=== PATIENT | female | born 1970 | race African-American/Black ===

== ENCOUNTER → 2017-01-12 | Outpatient (CLI) | payer OTHER ==
[~2017-01-12] MED LIST: /AMLO25TA PO; /METH500TA PO; /MOM400 PO; ACET-654 PO; ADV250INH INH; ALBU2TA PO; ALBUTEROL INHL INH; AMLO5TAB2 PO; BUSP5TA PO; CIPR500T89 PO; COZA100T2 PO; FLAG500T PO; FLON0.054; FLUTISP; LOSA100T37 PO; LOSA50TA20 PO; LYRI75CA PO; MICR10CA PO; MIRA255PW PO; NORCOBULK PO; NORT50CA PO; OMEP40CA2 PO; ORPH100T PO; PIRO20CA2 PO; ROBA500T PO; TRAM50TA2 PO; VITA50003 PO; ZYRT10CA PO; [UNRECOGNIZED DRUG - CODE] PO; [UNRECOGNIZED DRUG - OTHER]; buspar PO
[2017-01-12 17:23] LABS: FREE T4 1.01 NG/DL (0.76-1.46)
== END ==
LOC: M LAB 15:21
PROVIDERS: ATTEND Internal Medicine Gastroenterology
DX: R10.84 Generalized abdominal pain (principal)

== ENCOUNTER → 2017-01-12 | Outpatient (CLI) | payer OTHER ==
[2017-01-12 15:50] LABS: BASO % 0.8 % (0.0-1.0); EOS # 0.1 K/mm3 (0.0-0.50); LARGE UNSTAINED CELL # 0.1 K/mm3 (0.0-0.4); LARGE UNSTAINED CELL % 2.1 % (0.0-4.0); LYMPH % 53.7 % (24.0-44.0); MEAN CORPUSCULAR HEMOGLOBIN 26.4 pg (27.0-33.0); MEAN CORPUSCULAR HGB CONC 32.9 g/dl (32.0-36.5); MEAN CORPUSCULAR VOLUME 80.1 fl (80.0-96.0); MONO # 0.2 K/mm3 (0.0-0.8); MONO % 4.9 % (0.0-5.0); NEUTROPHILS # 1.3 K/mm3 (1.8-7.7); NEUTROPHILS % 36.5 % (36.0-66.0); PLATELET COUNT, AUTOMATED 299 k/mm3 (150-450); RED CELL DISTRIBUTION WIDTH 13.7 % (11.5-14.5); WHITE BLOOD COUNT 3.6 K/mm3 (4.0-10.0)
[2017-01-12 17:17] LABS: VITAMIN B12 LEVEL 876 PG/ML (247-911)
[2017-01-12 20:30] LABS: ALBUMIN/GLOBULIN RATIO 1.08 (1.00-1.93); ALKALINE PHOSPHATASE 88 U/L (45-117); ALT/SGPT 17 U/L (12-78); ANION GAP 10 MEQ/L (8-16); AST/SGOT 15 U/L (15-37); BILIRUBIN,TOTAL 0.4 MG/DL (0.2-1.0); BLOOD UREA NITROGEN 13 MG/DL (7-18); CARBON DIOXIDE LEVEL 31 MEQ/L (21-32); CHLORIDE LEVEL 103 MEQ/L (98-107); CREATININE FOR GFR 0.93 MG/DL (0.55-1.02); GLOMERULAR FILTRATION RATE > 60.0 (>58); GLUCOSE, FASTING 77 MG/DL (70-105); POTASSIUM SERUM 3.7 MEQ/L (3.5-5.1); SODIUM LEVEL 144 MEQ/L (136-145); TOTAL PROTEIN 7.7 GM/DL (6.4-8.2)
== END ==
LOC: M LAB 15:17
PROVIDERS: ATTEND Family Medicine Addiction Medicine
DX: D64.89 Other specified anemias (principal)

== ENCOUNTER 2017-02-02 05:59 | Emergency (ER) | payer OTHER ==
[~2017-02-02] VITALS: Ht 170.2 cm; Wt 108.9 kg
[~2017-02-02 05:59] MED LIST changes: +BACL10TA2 PO; +OXYC1TAB23 PO; +SOMA350T PO; +TIZA4CAP3 PO; +[UNRECOGNIZED DRUG - CODE] XX
[2017-02-02] MEDS ORDERED: MORPHINE 4 MG/ML 1ML SYRINGE IV ONE (07:00)
[2017-02-02] MEDS ORDERED: ONDANSETRON 4MG/2ML VIAL (J2405) IV ONE (07:00)
[2017-02-02 07:52] LABS: MEAN CORPUSCULAR HEMOGLOBIN 26.3 pg (27.0-33.0); MEAN CORPUSCULAR VOLUME 79.6 fl (80.0-96.0); RED CELL DISTRIBUTION WIDTH 13.6 % (11.5-14.5); WHITE BLOOD COUNT 3.5 K/mm3 (4.0-10.0)
--- NOTE | 2017-02-02 07:52 | REP ---
PA and lateral chest: Comparisons 02/20/2015. The lung anand are clear. Cardiac size is normal. The shaheen and mediastinum are unremarkable. There is scoliosis convex right at the thoracolumbar junction, unchanged. There is a cervical spine stabilization plate, unchanged. Impression: There are no acute cardiopulmonary findings. No interval change. Signed by Ricardo Booker MD 02/02/2017 07:44 A
[2017-02-02 07:58] LABS: INR 0.99
[2017-02-02 08:14] LABS: ALBUMIN 3.8 GM/DL (3.2-5.2); ALBUMIN/GLOBULIN RATIO 1.19 (1.00-1.93); ALKALINE PHOSPHATASE 83 U/L (45-117); ALT/SGPT 15 U/L (12-78); ANION GAP 8 MEQ/L (8-16); AST/SGOT 13 U/L (15-37); BILIRUBIN,TOTAL 0.3 MG/DL (0.2-1.0); BLOOD UREA NITROGEN 13 MG/DL (7-18); CALCIUM LEVEL 8.8 MG/DL (8.5-10.1); CARBON DIOXIDE LEVEL 30 MEQ/L (21-32); CHLORIDE LEVEL 104 MEQ/L (98-107); CREATININE FOR GFR 0.89 MG/DL (0.55-1.02); GLOMERULAR FILTRATION RATE > 60.0 (>58); GLUCOSE, FASTING 100 MG/DL (70-105); POTASSIUM SERUM 3.4 MEQ/L (3.5-5.1); SODIUM LEVEL 142 MEQ/L (136-145)
[2017-02-02] MEDS ORDERED: HYDROmorphone HCL 1 MG/ML SYRINGE (J1170) IV ONE (08:15)
--- NOTE | 2017-02-02 09:11 | REP ---
CT LUMBAR SPINE WITHOUT CONTRAST: HISTORY: Left leg numbness. There is no disc bulge or herniation at the L1-2 through L3-4 levels. The nerves exit the neural foramina without compression. A diffuse disc bulge is present at the L4-5 level. There is minimal compression of the thecal sac. There is hypertrophy of the posterior articulating facets. The L4 nerves exit the neural foramina without compression. A diffuse disc bulge with associated osteophyte formation is present at the L5-S1 level. There is minimal compression of the thecal sac. There is hypertrophy of the posterior articulating facets. There is compression of the L5 nerves in the neural foramina. The L4-5 and L5-S1 intervertebral discs are decreased in height. Vacuum phenomenon is present at the L5-S1 level. These findings are consistent with disc degeneration. There is no subluxation. There is minimal scoliosis convex to the left. IMPRESSION: 1. Diffuse disc bulge at the L4-5 level with minimal thecal sac compression. 2. Diffuse disc bulge with associated osteophyte formation at the L5-S1 level with minimal thecal sac compression. There is compression of the L5 nerves in the neural foramina. Signed by Melecio Martino MD 02/02/2017 09:48 A
--- NOTE | 2017-02-02 09:21 | REP ---
CT CERVICAL SPINE WITHOUT CONTRAST: HISTORY: Left arm numbness. COMPARISON: 08/07/2016 Facet hypertrophy is present on the left at the C2-3 level. This produces minimal narrowing of the left C2 neural foramen . The right C2 neural foramen is patent. The patient is status post C3 through C7 anterior spinal fusion. A fixation plate and bone graft material are present. Small posterior osteophytes are present at the C3-4 through C6-7 levels. There is minimal narrowing of the spinal canal. Uncinate process hypertrophy is present at the C3-4 and C4-5 levels. This produces minimal narrowing of the neural foramina. The remaining neural foramina are patent. There is no subluxation. A 1.3 cm hypodensity is present in the right thyroid lobe. This may represent a cyst. IMPRESSION: 1. The patient is status post C3 to C7 anterior spinal fusion. There is anatomic alignment. 2. There is cervical spondylosis at the C2-3 through C6-7 levels. 3. There is a 1.3 cm hypodensity in the right thyroid lobe. This may represent a cyst. Ultrasound may be helpful for further evaluation. There is no significant change compared to the previous study. Signed by Melecio Martino MD 02/02/2017 09:48 A
--- NOTE | 2017-02-02 10:51 | REP ---
MR BRAIN WITHOUT CONTRAST: HISTORY: Anoxic injury. COMPARISON: 04/14/2013 There are no areas of abnormal signal intensity in the brain. There is no intraparenchymal hemorrhage, infarct, mass or midline shift. The ventricular system is normal in appearance. There is no extracerebral collection. The sinuses are clear. IMPRESSION: There is no intracranial lesion. Signed by Melecio Martino MD 02/02/2017 10:52 A
--- NOTE | 2017-02-02 11:16 | REP ---
Thyroid ultrasound: Comparison is the thyroid ultrasound dated 04/16/2015. There is also a comparison CT of the cervical spine earlier today. The thyroid right lobe is upper normal size measuring 5.0 x 2.2 x 1.7 cm (previously 4.9 x 2.7 x 1.9 cm). The left lobe is upper normal size measuring 4.8 x 2.6 x 1.3 cm (previously 5.1 x 2.1 x 1.6 cm. There are two right thyroid lobe nodules, one measuring 1.2 x 0.9 x 1.2 cm (previously 1.3 x 1.1 x 1.3 cm), and the other measuring 1.7 x 1.2 x 1.6. There is centimeters (previously 1.7 x 1.1 x 1.6 cm. The thyroid left lobe is homogeneous with no nodules, masses or cysts. This is unchanged. Impression: There are two nodules in the right lobe as described. There are no nodules in the left lobe. The right and left lobes are upper normal size. The isthmus is not thickened measuring 2.6 mm. There is no significant interval change. Signed by Ricardo Booker MD 02/02/2017 11:08 A
[2017-02-02] MEDS ORDERED: PRED20TA PO (12:02)
[2017-02-02 12:14] VITALS: BP 114/69
--- NOTE | 2017-02-02 21:16 | ED PDOC ---
Post-Departure Follow-Up sukumar bagley faxed formal report of ct l spine and ct c spine for fu Danielle Aranda MD Feb 02, 2017 21:16
--- NOTE | 2017-02-02 21:22 | ED PDOC ---
Post-Departure Follow-Up additionally pcp faxed formal report thyroid us for nareng Danielle Sanchez MD Feb 02, 2017 21:22
--- NOTE | 2017-02-03 21:30 | ECGEPIP ---
Stationary ECG Study [facility] - ED Test Date: 2017-02-02 Pat Name: ALYSA FORTE Department: Room: - Gender: F Medical Staff Assistant: ct : 1970 Requested By: Christina Salinas PA-C Order Number: [id number] Reading MD: Alysa Shook Measurements Intervals [place] Rate: 73 P: 57 [place]: 156 QRS: -5 QRSD: 90 T: 4 QT: 402 QTc: 445 Interpretive Statements SINUS RHYTHM NSTTW ABNORMALITY SIMILAR 03/01/16 Electronically Signed On 02-03-2017 21:29:33 EDT by Alysa Shook
--- NOTE | 2017-02-05 13:49 | ED PDOC ---
Post-Departure Follow-Up dr andrews faxed fomral report of ct head. Danielle Sanchez MD Feb 05, 2017 13:49
== END 2017-02-02 12:33 | disposition home or self-care (01) ==
LOC: M ED 08:06
DX: M54.2 Cervicalgia (principal); R20.2 Paresthesia of skin; E04.8 Other specified nontoxic goiter; M51.26 Other intervertebral disc displacement, lumbar region; M47.812 Spondylosis without myelopathy or radiculopathy, cervical region; D64.9 Anemia, unspecified; M43.22 Fusion of spine, cervical region; Z79.899 Other long term (current) drug therapy
CPT/HCPCS: 70450; 70551; 71020; 72125; 72131; 76536; 80053; 82550; 82553; 85027; 85610; 85730; 93005; 96374; 96375; 99284; J1170; J2405

== ENCOUNTER → 2017-02-26 | Outpatient (CLI) | payer OTHER ==
[~2017-02-26] MED LIST changes: +PRED20TA PO
[2017-02-26 19:45] LABS: BASO % 0.4 % (0.0-1.0); EOS # 0.1 K/mm3 (0.0-0.50); EOS % 2.8 % (0.0-3.0); LARGE UNSTAINED CELL # 0.1 K/mm3 (0.0-0.4); LARGE UNSTAINED CELL % 1.5 % (0.0-4.0); LYMPH % 44.5 % (24.0-44.0); MEAN CORPUSCULAR HEMOGLOBIN 26.6 pg (27.0-33.0); MEAN CORPUSCULAR VOLUME 80.8 fl (80.0-96.0); MONO # 0.2 K/mm3 (0.0-0.8); MONO % 4.7 % (0.0-5.0); NEUTROPHILS # 2.1 K/mm3 (1.8-7.7); NEUTROPHILS % 46.1 % (36.0-66.0); PLATELET COUNT, AUTOMATED 248 k/mm3 (150-450); RED CELL DISTRIBUTION WIDTH 14.1 % (11.5-14.5); WHITE BLOOD COUNT 4.5 K/mm3 (4.0-10.0)
== END ==
LOC: M LAB 19:07
PROVIDERS: ATTEND Family Medicine Addiction Medicine
DX: R53.83 Other fatigue (principal); D64.89 Other specified anemias

== ENCOUNTER → 2017-03-12 | Outpatient (CLI) | payer OTHER ==
[~2017-03-12] VITALS: Ht 170.2 cm; Wt 109.3 kg
[~2017-03-12] MED LIST changes: +ALBU17IN INH; +FLON1SPR; +IRON65TA PO; +LIDOCAINE 2% INJ 100 MG/5 ML SDV (FOR ANES.) As Ordered ONE; +NS 1,000 ML IV ONE; +PREG50CA PO; +PROPOFOL 500 MG/50 ML VIAL As Ordered ONE; +RIZA10TA2 PO; +[UNRECOGNIZED DRUG - CODE] PO; -[UNRECOGNIZED DRUG - CODE] XX
--- NOTE | 2017-03-12 13:08 | ROOR ---
Patient Name: Alysa Alvarado Procedure Date: 03/12/2017 12:59 PM Date of : 1970 Age: 47 Room: [facility] Gender: Female Note Status: Finalized Procedure: Upper GI endoscopy Indications: Generalized abdominal pain, Heartburn Providers: Tom APARICIO MD Referring MD: Bryce YANEZ MD Requesting Provider: Medicines: Monitored Anesthesia Care Complications: No immediate complications. Procedure: Pre-Anesthesia Assessment: - The heart rate, respiratory rate, oxygen saturations, blood pressure, adequacy of pulmonary ventilation, and response to care were monitored throughout the procedure. The Endoscope was introduced through the mouth, and advanced to the second part of duodenum. The upper GI endoscopy was accomplished without difficulty. The patient tolerated the procedure well. Findings: The esophagus was normal. The stomach was normal. (large,compliant but normal stomach) The examined duodenum was normal. Impression: - Normal esophagus. - Normal stomach. - Normal examined duodenum. - No specimens collected. Recommendation: - Continue present medications. Tom Aparicio MD Tom APARICIO MD 03/12/2017 1:08:17 PM This report has been signed electronically. Number of Addenda: 0 Note Initiated On: 03/12/2017 12:59 PM Estimated Blood Loss: Estimated blood loss: none.
--- NOTE | 2017-03-12 13:28 | ROOR ---
Patient Name: Alysa Alvarado Procedure Date: 03/12/2017 1:00 PM Date of : 1970 Age: 47 Room: [facility] Gender: Female Note Status: Finalized Procedure: Colonoscopy Indications: Change in bowel habits, Diarrhea Providers: Tom APARICIO MD Referring MD: Bryce YANEZ MD Requesting Provider: Medicines: Monitored Anesthesia Care Complications: No immediate complications. Procedure: Pre-Anesthesia Assessment: - The heart rate, respiratory rate, oxygen saturations, blood pressure, adequacy of pulmonary ventilation, and response to care were monitored throughout the procedure. The Colonoscope was introduced through the anus and advanced to 5 cm into the ileum. The colonoscopy was performed without difficulty. The patient tolerated the procedure well. The quality of the bowel preparation was good. Findings: The perianal and digital rectal examinations were normal. (Exam: Complete, Prep: Good or Excellent.) A diminutive polyp was found in the ascending colon. The polyp was sessile. The polyp was removed with a jumbo cold forceps. Resection and retrieval were complete. The exam was otherwise normal throughout the examined colon. The terminal ileum appeared normal. Biopsies for histology were taken with a cold forceps from the entire colon for evaluation of microscopic colitis. Impression: - One diminutive polyp in the ascending colon, removed with a jumbo cold forceps. Resected and retrieved. - The entire colon and examined portion of the ileum are normal. - Biopsies were taken with a cold forceps from the entire colon for evaluation of microscopic colitis. Recommendation: - Continue present medications. - Telephone endoscopist for pathology results in 2 weeks. - If the pathology report reveals adenomatous tissue, then repeat the colonoscopy for surveillance in 5 years. Tom Aparicio MD Tom APARICIO MD 03/12/2017 1:28:02 PM This report has been signed electronically. Number of Addenda: 0 Note Initiated On: 03/12/2017 1:00 PM Estimated Blood Loss: Estimated blood loss: none.
[2017-03-12 13:40] VITALS: BP 137/89
== END | disposition home or self-care (01) ==
LOC: M OPP 12:16
PROVIDERS: ATTEND Internal Medicine Gastroenterology
DX: R19.4 Change in bowel habit (principal); D12.2 Benign neoplasm of ascending colon; R12 Heartburn; R10.9 Unspecified abdominal pain; R19.7 Diarrhea, unspecified; I10 Essential (primary) hypertension; E04.1 Nontoxic single thyroid nodule; K57.92 Diverticulitis of intestine, part unspecified, without perforation or abscess without bleeding; D64.9 Anemia, unspecified; M19.90 Unspecified osteoarthritis, unspecified site; M54.9 Dorsalgia, unspecified; F41.9 Anxiety disorder, unspecified; G43.909 Migraine, unspecified, not intractable, without status migrainosus; J45.909 Unspecified asthma, uncomplicated; G47.30 Sleep apnea, unspecified; R06.83 Snoring; K21.9 Gastro-esophageal reflux disease without esophagitis; M48.00 Spinal stenosis, site unspecified; Z79.899 Other long term (current) drug therapy; Z98.1 Arthrodesis status; Z80.3 Family history of malignant neoplasm of breast

== ENCOUNTER 2017-03-26 10:59 | Outpatient (RCR) | payer OTHER ==
[~2017-03-26 10:59] MED LIST changes: -LIDOCAINE 2% INJ 100 MG/5 ML SDV (FOR ANES.) As Ordered ONE; -NS 1,000 ML IV ONE; -PROPOFOL 500 MG/50 ML VIAL As Ordered ONE
== END 2017-03-31 ==
LOC: M PT 10:59
PROVIDERS: ATTEND Neurological Surgery
DX: Z51.89 Encounter for other specified aftercare (principal); M54.5 Low back pain

== ENCOUNTER 2017-04-09 20:46 | Emergency (ER) | payer OTHER ==
[~2017-04-09] VITALS: Ht 170.2 cm; Wt 106.6 kg
[2017-04-09] MEDS ORDERED: CLIN1CAP5 PO (20:56)
[2017-04-09] MEDS: HYDROmorphone HCL 1 MG/ML SYRINGE (J1170) IV PRN ×2 (21:26→22:26)
[2017-04-09] MEDS ORDERED: CLINDAMYCIN 900 MG in APPROPRIATE DILUENT 1 EA IV ONE (21:30)
[2017-04-09 23:00] VITALS: BP 127/69
== END 2017-04-09 23:05 | disposition home or self-care (01) ==
LOC: M ED 21:51
DX: K04.7 Periapical abscess without sinus (principal); G50.1 Atypical facial pain; I10 Essential (primary) hypertension; J45.909 Unspecified asthma, uncomplicated; F41.9 Anxiety disorder, unspecified; Z90.79 Acquired absence of other genital organ(s); Z79.899 Other long term (current) drug therapy

== ENCOUNTER 2017-04-14 04:01 | Emergency (ER) | payer OTHER ==
[~2017-04-14] VITALS: Ht 170.2 cm; Wt 108.0 kg
[~2017-04-14 04:01] MED LIST changes: +CLIN1CAP5 PO
[2017-04-14] MEDS ORDERED: GI COCKTAIL 50ML BTL(HYOSCYAMINE/MAALOX/LIDOCAINE VISCOUS)(1:3:1) PO ONE (04:45)
[2017-04-14] MEDS ORDERED: ASPIRIN 81 MG CHEW TABLET PO ONE (04:45)
[2017-04-14] MEDS ORDERED: PANTOPRAZOLE 40MG INJ (PROTONIX) (C9113) IV ONE (04:45)
[2017-04-14 04:47] LABS: BASO % 0.9 % (0.0-1.0); EOS # 0.1 K/mm3 (0.0-0.50); EOS % 2.7 % (0.0-3.0); LARGE UNSTAINED CELL # 0.1 K/mm3 (0.0-0.4); LARGE UNSTAINED CELL % 1.8 % (0.0-4.0); LYMPH # 2.2 K/mm3 (1.5-4.5); LYMPH % 46.7 % (24.0-44.0); MEAN CORPUSCULAR HEMOGLOBIN 27.1 pg (27.0-33.0); MEAN CORPUSCULAR VOLUME 79.8 fl (80.0-96.0); MONO # 0.2 K/mm3 (0.0-0.8); MONO % 5.4 % (0.0-5.0); NEUTROPHILS # 1.9 K/mm3 (1.8-7.7); NEUTROPHILS % 42.5 % (36.0-66.0); PLATELET COUNT, AUTOMATED 323 k/mm3 (150-450); RED CELL DISTRIBUTION WIDTH 13.6 % (11.5-14.5); WHITE BLOOD COUNT 4.5 K/mm3 (4.0-10.0)
[2017-04-14 05:13] LABS: ANION GAP 7 MEQ/L (8-16); BLOOD UREA NITROGEN 12 MG/DL (7-18); CALCIUM LEVEL 8.9 MG/DL (8.5-10.1); CARBON DIOXIDE LEVEL 31 MEQ/L (21-32); CHLORIDE LEVEL 101 MEQ/L (98-107); CREATININE FOR GFR 0.93 MG/DL (0.55-1.02); GLOMERULAR FILTRATION RATE > 60.0 (>58); GLUCOSE, FASTING 102 MG/DL (70-105); POTASSIUM SERUM 3.3 MEQ/L (3.5-5.1); SODIUM LEVEL 139 MEQ/L (136-145)
--- NOTE | 2017-04-14 05:40 | REP ---
Clinical: Chest pain . Comparison: 02/02/2017 . Findings: The mediastinum and cardiac silhouette are stable and within normal limits for portable technique. The lung anand are clear without acute consolidation, effusion, or pneumothorax. Skeletal structures are intact. Impression: Normal portable chest x-ray Signed by Gerry Pires MD 04/14/2017 05:31 A
[2017-04-14] MEDS ORDERED: MORPHINE 4 MG/ML 1ML SYRINGE IV ONE (05:45)
--- NOTE | 2017-04-14 06:02 | REP ---
Clinical: Acute chest pain. Comparison: 10/30/2013. Technique: Axial contrast enhanced images from the thoracic inlet to the upper abdomen using 100 ml Isovue 370 intravenous contrast material with coronal and sagittal re-formations. Findings: Satisfactory enhancement of the pulmonary vasculature is achieved and no filling defects are identified to suggest pulmonary embolus. Thoracic aorta is normal caliber without aneurysm or dissection. Heart and pericardium are normal. Lung bases demonstrate mild bibasilar atelectasis and dependent changes including small focal consolidation at the lingula. No nodule or mass lesion. No pleural effusion/reaction. No pneumothorax. No adenopathy. Impression: 1. No evidence for pulmonary embolus. 2. Mild bibasilar atelectasis and dependent changes with very small area of consolidation in the lingula. Signed by Gerry Pires MD 04/14/2017 05:53 A
[2017-04-14 09:25] VITALS: BP 104/64
--- NOTE | 2017-04-14 16:27 | ECGEPIP ---
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
--- NOTE | 2017-04-14 16:28 | ECGEPIP ---
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
== END 2017-04-14 09:34 | disposition home or self-care (01) ==
LOC: M ED 05:20
DX: R07.9 Chest pain, unspecified (principal); I10 Essential (primary) hypertension; J45.909 Unspecified asthma, uncomplicated; K21.9 Gastro-esophageal reflux disease without esophagitis; I31.9 Disease of pericardium, unspecified; Z79.899 Other long term (current) drug therapy

== ENCOUNTER → 2017-04-29 | Outpatient (CLI) | payer OTHER ==
[~2017-04-29] MED LIST changes: -ACET-654 PO; +ACET1TAB17 PO; +CARA1TAB6 PO; +CLIN150C14 PO; -CLIN1CAP5 PO; -LOSA100T37 PO; +LOSA100T5 PO; +NAPR500T PO; +PEPC1TAB4 PO; +VALI5TAB PO; +VITA1CAP40 PO; -VITA50003 PO
--- NOTE | 2017-04-29 15:20 | REP ---
DIGITAL DIAGNOSTIC BILATERAL MAMMOGRAPHY WITH CAD AND FOCUSED RIGHT BREAST SONOGRAPHY: HISTORY: Mass in the right axillary region, possible fat deposit. COMPARISON: Mammography, November 27, 2015 and February 09, 2013. MAMMOGRAPHIC FINDINGS: Routine views of the right breast are augmented by true ML and laterally exaggerated CC views with a skin marker affixed to the site of the palpable abnormality in the right axilla. Routine views of the left breast were included. Breast parenchyma remains predominately fat replaced bilaterally. There are normal-appearing lymph nodes visible in each axilla, unchanged. There is no evidence of mass in the axilla in the area of the palpable abnormality mammographically. SONOGRAPHIC FINDINGS: Sonographic evaluation of the right axilla shows multiple small normal-appearing axillary lymph nodes corresponding the mammographic findings. No correlate for the palpable lump is seen sonographically. Mildly inhomogeneous background echotexture is observed. IMPRESSION: BIRADS category 2, benign bilateral breast imaging. This negative report should not dissuade one from biopsy of a palpable lump depending on its clinical characteristics. Clinical followup is advised. BI-RADS/ACR category 2 mammogram. Benign finding(s). Routine annual screening mammography (for women over age 40). This mammogram was interpreted with the aid of an FDA-approved computer-aided detection system. The patient states she/he had a clinical breast exam in March 2017. The patient letter being requested is M2. Signed by Juventino Marin MD 04/29/2017 03:35 P
== END ==
LOC: M RAD 13:18
PROVIDERS: ATTEND Family Medicine
DX: R22.31 Localized swelling, mass and lump, right upper limb (principal)
CPT/HCPCS: 76642; G0204

== ENCOUNTER 2017-04-30 15:26 | Emergency (ER) | payer OTHER ==
[~2017-04-30] VITALS: Ht 170.2 cm; Wt 107.6 kg
[~2017-04-30 15:26] MED LIST changes: -CARA1TAB6 PO; -NAPR500T PO; -PEPC1TAB4 PO; -VALI5TAB PO
[2017-04-30 16:27] LABS: BASO % 0.7 % (0.0-1.0); EOS # 0.1 K/mm3 (0.0-0.50); EOS % 2.3 % (0.0-3.0); LARGE UNSTAINED CELL # 0.1 K/mm3 (0.0-0.4); LARGE UNSTAINED CELL % 1.6 % (0.0-4.0); LYMPH # 1.9 K/mm3 (1.5-4.5); LYMPH % 38.9 % (24.0-44.0); MEAN CORPUSCULAR HGB CONC 34.2 g/dl (32.0-36.5); MEAN CORPUSCULAR VOLUME 79.1 fl (80.0-96.0); MONO # 0.2 K/mm3 (0.0-0.8); MONO % 4.2 % (0.0-5.0); NEUTROPHILS # 2.4 K/mm3 (1.8-7.7); NEUTROPHILS % 52.3 % (36.0-66.0); PLATELET COUNT, AUTOMATED 282 k/mm3 (150-450); RED CELL DISTRIBUTION WIDTH 13.9 % (11.5-14.5); WHITE BLOOD COUNT 4.6 K/mm3 (4.0-10.0)
--- NOTE | 2017-04-30 16:36 | REP ---
Portable chest, single frontal view: Comparison is 04/14/2017. There are cervical spine stabilization plates, unchanged. The lung anand are clear. The cardiac size is normal. The shaheen, mediastinum, and bony thorax are unremarkable. Impression: Negative portable chest. There is no interval change. Signed by Ricardo Booker MD 04/30/2017 04:28 P
[2017-04-30 16:55] LABS: ALBUMIN 3.8 GM/DL (3.2-5.2); ALBUMIN/GLOBULIN RATIO 0.97 (1.00-1.93); ALKALINE PHOSPHATASE 78 U/L (45-117); ALT/SGPT 18 U/L (12-78); ANION GAP 8 MEQ/L (8-16); AST/SGOT 16 U/L (15-37); BILIRUBIN,DIRECT < 0.1 MG/DL (0.0-0.2); BILIRUBIN,TOTAL 0.5 MG/DL (0.2-1.0); BLOOD UREA NITROGEN 13 MG/DL (7-18); CALCIUM LEVEL 9.3 MG/DL (8.5-10.1); CARBON DIOXIDE LEVEL 30 MEQ/L (21-32); CHLORIDE LEVEL 104 MEQ/L (98-107); GLOMERULAR FILTRATION RATE > 60.0 (>58); GLUCOSE, FASTING 80 MG/DL (70-105); POTASSIUM SERUM 3.4 MEQ/L (3.5-5.1); SODIUM LEVEL 142 MEQ/L (136-145); TOTAL PROTEIN 7.7 GM/DL (6.4-8.2)
[2017-04-30 18:11] VITALS: BP 119/71
--- NOTE | 2017-05-01 07:23 | ECGEPIP ---
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
== END 2017-04-30 18:28 | disposition home or self-care (01) ==
LOC: M ED 15:26
DX: F43.0 Acute stress reaction (principal); R07.89 Other chest pain; I10 Essential (primary) hypertension; Z82.49 Family history of ischemic heart disease and other diseases of the circulatory system; Z79.899 Other long term (current) drug therapy

== ENCOUNTER → 2017-04-30 | Outpatient (RCR) | payer OTHER | LOC: M PT 04-07 14:22 | PROVIDERS: ATTEND Neurological Surgery | DX: Z51.89 Encounter for other specified aftercare (principal); M54.5 Low back pain ==

== ENCOUNTER 2017-05-17 12:30 | Outpatient (RCR) | payer OTHER ==
[~2017-05-17 12:30] MED LIST changes: -CARA1TAB6 PO; -NAPR500T PO; -PEPC1TAB4 PO; -VALI5TAB PO
== END 2017-05-31 ==
LOC: M PT 12:30
PROVIDERS: ATTEND Neurological Surgery
DX: Z51.89 Encounter for other specified aftercare (principal); M54.5 Low back pain

== ENCOUNTER → 2017-05-17 | Outpatient (CLI) | payer OTHER ==
[~2017-05-17] MED LIST changes: +CARA1TAB6 PO; +NAPR500T PO; +PEPC1TAB4 PO; +VALI5TAB PO
[2017-05-17 14:02] LABS: BASO % 1.3 % (0.0-1.0); EOS # 0.1 K/mm3 (0.0-0.50); EOS % 2.7 % (0.0-3.0); LARGE UNSTAINED CELL # 0.1 K/mm3 (0.0-0.4); LARGE UNSTAINED CELL % 2.3 % (0.0-4.0); LYMPH # 1.9 K/mm3 (1.5-4.5); LYMPH % 49.9 % (24.0-44.0); MEAN CORPUSCULAR HEMOGLOBIN 26.6 pg (27.0-33.0); MEAN CORPUSCULAR HGB CONC 32.8 g/dl (32.0-36.5); MEAN CORPUSCULAR VOLUME 81.1 fl (80.0-96.0); MONO # 0.2 K/mm3 (0.0-0.8); MONO % 4.7 % (0.0-5.0); NEUTROPHILS # 1.5 K/mm3 (1.8-7.7); PLATELET COUNT, AUTOMATED 279 k/mm3 (150-450); WHITE BLOOD COUNT 3.8 K/mm3 (4.0-10.0)
== END ==
LOC: M LAB 13:15
PROVIDERS: ATTEND Family Medicine Addiction Medicine
DX: D64.89 Other specified anemias (principal); D55.9 Anemia due to enzyme disorder, unspecified

== ENCOUNTER → 2017-07-20 | Outpatient (CLI) | payer OTHER ==
[~2017-07-20] MED LIST changes: +CARA1TAB6 PO; +NAPR500T PO; +PEPC1TAB4 PO; +VALI5TAB PO
--- NOTE | 2017-07-20 16:08 | REP ---
MRI lumbar spine without contrast: History: Low back pain. Evaluate for disc herniation. Left leg pain and numbness and burning. Comparison study: June 15, 2013. Technique: Sagittal and axial T1 and T2-weighted scans are acquired in the usual fashion with and without fat saturation. Sequences include spin echo, turbo spin-echo, and STIR imaging sequences. MRI findings: There is a levoconvex scoliotic curvature noted. Lumbar vertebral body heights are preserved. Alignment is otherwise normal. There is advanced degenerative disc disease at L4-5 and L5-S1. Reactive marrow changes are seen on either side of the L5-S1 disc. Other disc spaces are maintained. Conus medullaris is normal in position and appearance at L1-2. Axial and sagittal images taken at L5-S1 demonstrate developmentally short pedicles, moderate bilateral facet hypertrophy and bilateral ligamentum flavum hypertrophy, and mild central canal stenosis. There is moderate diffuse disc bulging and posterior osteophytic ridging. This indents the ventral margin of the thecal sac. The left neural foramen is mildly narrowed due to facet hypertrophy and disc bulging. At L4-L5, there is also diffuse bulging of the posterior disc margin. Mild central canal stenosis is seen. This is contributed to by facet hypertrophy and ligamentum flavum hypertrophy which is mild. The AP mid sagittal dimension of the thecal sac is 9 mm. No neural foraminal narrowing is seen. At L3-4, there is mild facet hypertrophy. No other finding. At L2-3, no abnormality is noted. The L1-2 level is unremarkable as well. Impression: Degenerative spondylosis changes. Mild central canal stenosis at L4-5 and L5-S1. Facet hypertrophy is noted. These changes are radiographically essentially stable when compared with the June 15, 2013 prior study. Signed by Juventino Marin MD 07/20/2017 05:18 P
== END ==
LOC: M RAD 13:21
PROVIDERS: ATTEND Neurological Surgery
DX: M54.5 Low back pain (principal)

== ENCOUNTER → 2017-07-22 | Outpatient (REF) | payer OTHER ==
[2017-07-22 19:51] LABS: ALBUMIN 3.9 GM/DL (3.2-5.2); ALKALINE PHOSPHATASE 93 U/L (45-117); ALT/SGPT 22 U/L (12-78); ANION GAP 4 MEQ/L (8-16); AST/SGOT 5 U/L (15-37); BILIRUBIN,TOTAL 0.3 MG/DL (0.2-1.0); BLOOD UREA NITROGEN 12 MG/DL (7-18); CALCIUM LEVEL 9.1 MG/DL (8.5-10.1); CARBON DIOXIDE LEVEL 33 MEQ/L (21-32); CHLORIDE LEVEL 103 MEQ/L (98-107); CHOLESTEROL LEVEL 205 MG/DL (<200); CREATININE FOR GFR 0.93 MG/DL (0.55-1.02); GLOMERULAR FILTRATION RATE > 60.0 (>58); GLUCOSE, FASTING 76 MG/DL (70-105); POTASSIUM SERUM 4.3 MEQ/L (3.5-5.1); SODIUM LEVEL 140 MEQ/L (136-145); TOTAL PROTEIN 7.8 GM/DL (6.4-8.2); TRIGLYCERIDES LEVEL 162 MG/DL (<150)
[2017-07-22 20:16] LABS: MEAN CORPUSCULAR HGB CONC 33.6 g/dl (32.0-36.5); MEAN CORPUSCULAR VOLUME 80.5 fl (80.0-96.0); RED CELL DISTRIBUTION WIDTH 14.3 % (11.5-14.5); WHITE BLOOD COUNT 4.7 K/mm3 (4.0-10.0)
== END ==
LOC: M SFHCLERA 14:43
PROVIDERS: ATTEND Family Medicine
DX: E04.1 Nontoxic single thyroid nodule (principal); G89.4 Chronic pain syndrome; M19.90 Unspecified osteoarthritis, unspecified site; R29.898 Other symptoms and signs involving the musculoskeletal system

== ENCOUNTER 2017-07-24 02:11 | Emergency (ER) | payer OTHER ==
[~2017-07-24] VITALS: Ht 170.2 cm; Wt 109.1 kg
[~2017-07-24 02:11] MED LIST changes: -CARA1TAB6 PO; -NAPR500T PO; -PEPC1TAB4 PO; -VALI5TAB PO
[2017-07-24] MEDS ORDERED: GI COCKTAIL 50ML BTL(HYOSCYAMINE/MAALOX/LIDOCAINE VISCOUS)(1:3:1) PO ONE (03:30)
[2017-07-24] MEDS ORDERED: ASPIRIN 81 MG CHEW TABLET PO ONE (03:30)
[2017-07-24 03:33] LABS: BASO % 0.8 % (0.0-1.0); EOS # 0.1 K/mm3 (0.0-0.50); EOS % 1.5 % (0.0-3.0); LARGE UNSTAINED CELL # 0.1 K/mm3 (0.0-0.4); LARGE UNSTAINED CELL % 1.6 % (0.0-4.0); LYMPH # 2.1 K/mm3 (1.5-4.5); LYMPH % 35.9 % (24.0-44.0); MEAN CORPUSCULAR HEMOGLOBIN 27.3 pg (27.0-33.0); MEAN CORPUSCULAR HGB CONC 34.4 g/dl (32.0-36.5); MEAN CORPUSCULAR VOLUME 79.3 fl (80.0-96.0); MONO # 0.3 K/mm3 (0.0-0.8); MONO % 4.8 % (0.0-5.0); NEUTROPHILS # 3.2 K/mm3 (1.8-7.7); NEUTROPHILS % 55.4 % (36.0-66.0); PLATELET COUNT, AUTOMATED 290 k/mm3 (150-450); RED CELL DISTRIBUTION WIDTH 14.1 % (11.5-14.5); WHITE BLOOD COUNT 5.7 K/mm3 (4.0-10.0)
[2017-07-24 03:49] LABS: ANION GAP 8 MEQ/L (8-16); BLOOD UREA NITROGEN 13 MG/DL (7-18); CALCIUM LEVEL 8.8 MG/DL (8.5-10.1); CARBON DIOXIDE LEVEL 31 MEQ/L (21-32); CHLORIDE LEVEL 105 MEQ/L (98-107); CREATININE FOR GFR 0.91 MG/DL (0.55-1.02); GLOMERULAR FILTRATION RATE > 60.0 (>58); GLUCOSE, FASTING 105 MG/DL (70-105); SODIUM LEVEL 144 MEQ/L (136-145)
[2017-07-24 04:15] LABS: POTASSIUM SERUM 3.3 MEQ/L (3.5-5.1)
[2017-07-24] MEDS ORDERED: ONDANSETRON 4MG/2ML VIAL (J2405) IV ONE (04:45)
[2017-07-24] MEDS ORDERED: MORPHINE 4 MG/ML 1ML SYRINGE IV PRN (04:45)
[2017-07-24] MEDS ORDERED: ISOVUE-370 76% 100ML VIAL (Q9967) As Ordered ONE (04:50)
--- NOTE | 2017-07-24 05:30 | REPUSA ---
CLINICAL HISTORY: Dyspnea, exclude PE. TECHNIQUE: Multiple incremental axial, coronal and oblique images are obtained from the thoracic inle t to the upper abdomen. Intravenous contrast material was administered as per pulmonary embolism prot ocol. COMMENTS: There is excellent opacification of pulmonary arterial system without evidence for pulmonary embolism . Aorta is of normal caliber without evidence for dissection or aneurysm. There is no evidence of pleural or parenchymal mass. Bilateral basilar atelectatic pulmonary changes. There are no pleural effusions. There is no evidence of hilar or mediastinal lymphadenopathy. The he art and great vessels are within normal limits. Images of the upper abdomen demonstrate no evidence of adrenal mass. The bony structures are free of lytic or blastic lesions. IMPRESSION: No evidence for pulmonary embolism. Bilateral basilar atelectatic pulmonary changes. Thank you for your kind referral of this patient.
[2017-07-24] MEDS ORDERED: CARA1TAB6 PO (06:35)
[2017-07-24] MEDS ORDERED: PEPC1TAB4 PO (06:35)
[2017-07-24 06:39] VITALS: BP 135/79
--- NOTE | 2017-07-25 05:54 | ECGEPIP ---
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
== END 2017-07-24 06:41 | disposition home or self-care (01) ==
LOC: M ED 02:11
DX: R07.89 Other chest pain (principal); K21.9 Gastro-esophageal reflux disease without esophagitis; Z79.899 Other long term (current) drug therapy
CPT/HCPCS: 71275; 80048; 82550; 82553; 85025; 93000; 93041; 94760; 96374; 96375; 99284; J2405; Q9967

== ENCOUNTER 2017-08-26 02:20 | Emergency (ER) | payer OTHER ==
[~2017-08-26] VITALS: Ht 170.2 cm; Wt 110.0 kg
[~2017-08-26 02:20] MED LIST changes: +CARA1TAB6 PO; +PEPC1TAB4 PO
[2017-08-26] MEDS ORDERED: KETOROLAC 30 MG/ML VIAL (J1885) IV ONE (04:15)
[2017-08-26] MEDS ORDERED: MORPHINE 4 MG/ML 1ML SYRINGE IV PRN (04:15)
[2017-08-26] MEDS ORDERED: ONDANSETRON 4MG/2ML VIAL (J2405) IV ONE (04:15)
[2017-08-26 05:06] VITALS: BP 125/75
[2017-08-26] MEDS ORDERED: NAPR500T PO (06:28)
[2017-08-26] MEDS ORDERED: PRED20TA PO (06:28)
[2017-08-26] MEDS ORDERED: VALI5TAB PO (06:28)
== END 2017-08-26 07:10 | disposition home or self-care (01) ==
LOC: M ED 02:20
DX: M54.42 Lumbago with sciatica, left side (principal); Z79.899 Other long term (current) drug therapy
CPT/HCPCS: 96374; 96375; 99284; J1885; J2405; J3360

== ENCOUNTER 2017-09-30 21:48 | Emergency (ER) | payer OTHER ==
[~2017-09-30] VITALS: Ht 170.2 cm; Wt 110.0 kg
[~2017-09-30 21:48] MED LIST changes: +NAPR500T PO; +VALI5TAB PO
[2017-09-30 22:02] VITALS: BP 125/79
[2017-10-01] MEDS ORDERED: NAPR500T PO (01:44)
--- NOTE | 2017-10-01 02:40 | REP ---
Clinical: Left-sided chest pain . Comparison: 04/30/2017 . Technique: PA and lateral. Findings: The mediastinum and cardiac silhouette are normal. The lung anand are clear and without acute consolidation, effusion, or pneumothorax. The skeletal structures are intact and normal. Impression: 1. No acute cardiopulmonary process. Signed by Gerry Pires MD 10/01/2017 02:31 A
--- NOTE | 2017-10-01 09:42 | ECGEPIP ---
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 Order Number: [id number] Reading MD: Leon Mullen Measurements Intervals [place] Rate: 89 P: 52 [place]: 147 QRS: -12 QRSD: 90 T: 30 QT: 357 QTc: 435 Interpretive Statements SINUS RHYTHM SIMILAR TO 07/24/17 Electronically Signed On 10-01-2017 9:41:49 EST by Leon Mullen
== END 2017-10-01 01:49 | disposition home or self-care (01) ==
LOC: M ED 21:48
DX: R07.81 Pleurodynia (principal); R51 Headache; I31.9 Disease of pericardium, unspecified; I10 Essential (primary) hypertension; J45.909 Unspecified asthma, uncomplicated; G47.30 Sleep apnea, unspecified; K57.90 Diverticulosis of intestine, part unspecified, without perforation or abscess without bleeding; E34.9 Endocrine disorder, unspecified; M54.9 Dorsalgia, unspecified; F41.9 Anxiety disorder, unspecified; Z79.899 Other long term (current) drug therapy

== ENCOUNTER → 2017-10-07 | Outpatient (CLI) | payer OTHER ==
--- NOTE | 2017-10-07 19:16 | REP ---
LEFT RIB SERIES: CLINICAL: Pain. TECHNIQUE: Five oblique views of the left hemithorax. FINDINGS: Left hemithorax demonstrates no obvious acute rib fracture or pathology. Visualized lung anand are relatively clear and without obvious focal consolidation, effusion or pneumothorax. IMPRESSION: No obvious acute left rib fracture or pathology. Signed by Gerry Pires MD 10/08/2017 08:09 A
== END ==
LOC: M LRY 15:25
PROVIDERS: ATTEND Family Medicine
DX: M94.0 Chondrocostal junction syndrome [Tietze] (principal); R07.81 Pleurodynia

== ENCOUNTER 2017-12-27 06:10 | Emergency (ER) | payer OTHER | END 2017-12-27 08:10 | disposition home or self-care (01) | LOC: M ED 06:10 | DX: M50.30 Other cervical disc degeneration, unspecified cervical region (principal); J45.909 Unspecified asthma, uncomplicated; G47.30 Sleep apnea, unspecified; K21.9 Gastro-esophageal reflux disease without esophagitis; F41.9 Anxiety disorder, unspecified; Z79.51 Long term (current) use of inhaled steroids; Z79.899 Other long term (current) drug therapy; Z98.890 Other specified postprocedural states; Z86.69 Personal history of other diseases of the nervous system and sense organs; Z86.79 Personal history of other diseases of the circulatory system; Z87.19 Personal history of other diseases of the digestive system; Z86.39 Personal history of other endocrine, nutritional and metabolic disease | CPT/HCPCS: 72052 ==

== ENCOUNTER 2018-01-05 12:23 | Outpatient (RCR) | payer OTHER | END 2018-01-29 | LOC: M PT 12:23 | DX: Z51.89 Encounter for other specified aftercare (principal); M54.5 Low back pain ==

== ENCOUNTER → 2018-01-05 | Outpatient (CLI) | payer OTHER ==
[2018-01-05 15:00] LABS: ANION GAP 6 MEQ/L (8-16); BLOOD UREA NITROGEN 12 MG/DL (7-18); CALCIUM LEVEL 9.4 MG/DL (8.5-10.1); CARBON DIOXIDE LEVEL 32 MEQ/L (21-32); CHLORIDE LEVEL 103 MEQ/L (98-107); CREATININE FOR GFR 1.03 MG/DL (0.55-1.30); FREE T4 1.04 NG/DL (0.76-1.46); GLOMERULAR FILTRATION RATE > 60.0 (>58); GLUCOSE, FASTING 86 MG/DL (70-100); POTASSIUM SERUM 3.9 MEQ/L (3.5-5.1); SODIUM LEVEL 141 MEQ/L (136-145); THYROID STIMULATING HORMONE 0.388 uIU/ML (0.358-3.740)
== END ==
LOC: M LAB 13:35
DX: E04.1 Nontoxic single thyroid nodule (principal); I10 Essential (primary) hypertension
CPT/HCPCS: 84443

== ENCOUNTER → 2018-01-27 | Outpatient (CLI) | payer OTHER | LOC: M RAD 10:39 | DX: E04.1 Nontoxic single thyroid nodule (principal) | CPT/HCPCS: 76536 ==

== ENCOUNTER 2018-02-08 15:34 | Outpatient (RCR) | payer OTHER | END 2018-02-28 | LOC: M PT 15:34 | DX: Z51.89 Encounter for other specified aftercare (principal); M54.5 Low back pain | CPT/HCPCS: 97010 ==

== ENCOUNTER 2018-03-01 12:59 | Outpatient (RCR) | payer OTHER | END 2018-03-31 | LOC: M PT 03-10 13:05 | DX: Z51.89 Encounter for other specified aftercare (principal); M54.5 Low back pain | CPT/HCPCS: 97010 ==

== ENCOUNTER → 2018-03-08 | Outpatient (REF) | payer OTHER | LOC: M LAB REF 13:37 | DX: E04.2 Nontoxic multinodular goiter (principal) ==

== ENCOUNTER 2018-04-07 14:20 | Outpatient (RCR) | payer OTHER | END 2018-04-30 | LOC: M PT 14:20 | DX: Z51.89 Encounter for other specified aftercare (principal); M54.5 Low back pain | CPT/HCPCS: 97110 ==

== ENCOUNTER 2018-04-18 05:01 | Emergency (ER) | payer OTHER ==
[2018-04-18] MEDS: NORCO, ANEXSIA 5/325MG TABLET (HYDROcodone/ACETAMINOPHEN) PO (06:23)
[2018-04-18] MEDS: predniSONE 20 MG TAB PO (07:46)
== END 2018-04-18 08:17 | disposition home or self-care (01) ==
LOC: M ED 05:01
DX: M79.605 Pain in left leg (principal); I10 Essential (primary) hypertension; J45.909 Unspecified asthma, uncomplicated; F41.9 Anxiety disorder, unspecified; M54.30 Sciatica, unspecified side; Z98.890 Other specified postprocedural states; Z79.899 Other long term (current) drug therapy
CPT/HCPCS: 93971

== ENCOUNTER → 2018-04-19 | Outpatient (CLI) | payer OTHER | LOC: M LRY 15:05 | DX: M79.672 Pain in left foot (principal) | CPT/HCPCS: 73630 ==

== ENCOUNTER 2018-05-23 21:50 | Emergency (ER) | payer OTHER ==
[2018-05-24] MEDS: PERCOCET 5MG/325MG TAB PO (00:46)
[2018-05-24] MEDS: KETOROLAC 60 MG/2 ML VIAL (J1885) IM (01:41)
== END 2018-05-24 02:10 | disposition home or self-care (01) ==
LOC: M ED 21:50
DX: M25.562 Pain in left knee (principal); I10 Essential (primary) hypertension; R51 Headache; J45.909 Unspecified asthma, uncomplicated; K21.9 Gastro-esophageal reflux disease without esophagitis; K57.92 Diverticulitis of intestine, part unspecified, without perforation or abscess without bleeding; M54.9 Dorsalgia, unspecified; Z98.1 Arthrodesis status; Z79.899 Other long term (current) drug therapy
CPT/HCPCS: J1885

== ENCOUNTER → 2018-07-12 | Outpatient (CLI) | payer OTHER ==
[~2018-07-12] MED LIST changes: -/AMLO25TA PO; -/METH500TA PO; -/MOM400 PO; -ACET1TAB17 PO; -ADV250INH INH; -ALBU17IN INH; -ALBU2TA PO; -ALBUTEROL INHL INH; -AMLO5TAB2 PO; -BACL10TA2 PO; -BUSP5TA PO; -CARA1TAB6 PO; -CIPR500T89 PO; -CLIN150C14 PO; -COZA100T2 PO; -FLAG500T PO; -FLON0.054; -FLON1SPR; -FLUTISP; -IRON65TA PO; -LOSA100T5 PO; -LOSA50TA20 PO; -LYRI75CA PO; +METHACHOLINE KIT (J7674) INH; -MICR10CA PO; -MIRA255PW PO; -NAPR500T PO; -NORCOBULK PO; -NORT50CA PO; -OMEP40CA2 PO; -ORPH100T PO; -OXYC1TAB23 PO; -PEPC1TAB4 PO; -PIRO20CA2 PO; -PRED20TA PO; -PREG50CA PO; -RIZA10TA2 PO; -ROBA500T PO; -SOMA350T PO; -TIZA4CAP3 PO; -TRAM50TA2 PO; -VALI5TAB PO; -VITA1CAP40 PO; -ZYRT10CA PO; -[UNRECOGNIZED DRUG - CODE] PO; -[UNRECOGNIZED DRUG - CODE] PO; -[UNRECOGNIZED DRUG - OTHER]; -buspar PO
== END ==
LOC: M CARPUL 13:59
DX: J45.998 Other asthma (principal)
CPT/HCPCS: 94070

== ENCOUNTER → 2018-07-12 | Outpatient (CLI) | payer OTHER ==
[2018-07-12 14:57] LABS: EOS # 0.1 10^3/uL (0.0-0.50); HEMATOCRIT 34.7 % (36.0-47.0); HEMOGLOBIN 11.1 g/dl (12.0-15.5); LYMPH % 50.4 % (24.0-44.0); MEAN CORPUSCULAR HEMOGLOBIN 26.1 pg (27.0-33.0); MEAN CORPUSCULAR VOLUME 81.6 fl (80.0-96.0); MONO # 0.2 10^3/uL (0.0-0.8); MONO % 5.3 % (0.0-5.0); NEUTROPHILS # 1.6 10^3/uL (1.8-7.7); NEUTROPHILS % 41.3 % (36.0-66.0); PLATELET COUNT, AUTOMATED 275 10^3/uL (150-450); RED BLOOD COUNT 4.25 10^6/uL (4.00-5.40); RED CELL DISTRIBUTION WIDTH 14.4 % (11.5-14.5)
[2018-07-12 15:17] LABS: C REACTIVE PROTEIN QUANTITATIV 1.53 MG/DL (0.00-0.30); RHEUMATOID FACTOR QUANT < 10.0 IU/ML (<15.0)
[2018-07-12 15:17] LABS: URIC ACID 5.9 MG/DL (2.6-6.0)
[2018-07-12 16:15] LABS: ERYTHROCYTE SEDIMENTATION RATE 37 mm/hr (0-20)
[2018-07-14 00:08] LABS: ANTINUCLEAR ANTIBODIES DIRECT Negative (Negative); Lyme Disease IgG/IgM Antibodie <0.91 ISR (0.00-0.90); Lyme Disease IgM Ab Quantitati <0.80 index (0.00-0.79)
== END ==
LOC: M LAB 13:57
DX: M25.462 Effusion, left knee (principal)
CPT/HCPCS: 84550

== ENCOUNTER → 2018-07-15 | Outpatient (CLI) | payer OTHER | LOC: M WHC 13:32 | DX: Z12.31 Encounter for screening mammogram for malignant neoplasm of breast (principal) | CPT/HCPCS: 77067 ==

== ENCOUNTER → 2018-08-03 | Outpatient (REF) | payer OTHER ==
[2018-08-03 18:09] LABS: C REACTIVE PROTEIN QUANTITATIV 1.38 MG/DL (0.00-0.30)
[2018-08-03 19:16] LABS: ERYTHROCYTE SEDIMENTATION RATE 33 mm/hr (0-20)
== END ==
LOC: M LAB REF 17:18
DX: M94.262 Chondromalacia, left knee (principal)

== ENCOUNTER 2018-08-16 21:17 | Emergency (ER) | payer OTHER ==
[2018-08-16] MEDS: ONDANSETRON 4MG/2ML VIAL (J2405) IV (23:15)
[2018-08-16] MEDS: NS 1,000 ML IV (23:16)
[2018-08-16] MEDS: KETOROLAC 30 MG/ML VIAL (J1885) IV (23:16)
[2018-08-16 23:18] LABS: BASO % 0.6 % (0.0-1.0); EOS # 0.1 10^3/uL (0.0-0.50); EOS % 1.6 % (0.0-3.0); HEMOGLOBIN 11.4 g/dl (12.0-15.5); IMMATURE GRANULOCYTE % 0.1 % (0-3.0); LYMPH % 44.5 % (24.0-44.0); MEAN CORPUSCULAR HEMOGLOBIN 26.5 pg (27.0-33.0); MEAN CORPUSCULAR HGB CONC 32.6 g/dl (32.0-36.5); MEAN CORPUSCULAR VOLUME 81.4 fl (80.0-96.0); MONO # 0.4 10^3/uL (0.0-0.8); MONO % 5.5 % (0.0-5.0); NEUTROPHILS # 3.2 10^3/uL (1.8-7.7); NEUTROPHILS % 47.7 % (36.0-66.0); PLATELET COUNT, AUTOMATED 286 10^3/uL (150-450); RED CELL DISTRIBUTION WIDTH 15.1 % (11.5-14.5); WHITE BLOOD COUNT 6.7 10^3/uL (4.0-10.0)
[2018-08-16 23:33] LABS: INR 1.01; PROTHROMBIN TIME 13.4 SECONDS (12.1-14.4)
[2018-08-16 23:34] LABS: PARTIAL THROMBOPLASTIN TIME 29.6 SECONDS (25.4-37.6)
[2018-08-16 23:51] LABS: ALBUMIN 3.8 GM/DL (3.2-5.2); ALBUMIN/GLOBULIN RATIO 0.97 (1.00-1.93); ALKALINE PHOSPHATASE 81 U/L (45-117); ALT/SGPT 15 U/L (12-78); ANION GAP 6 MEQ/L (8-16); AST/SGOT 11 U/L (7-37); BILIRUBIN,DIRECT < 0.1 MG/DL (0.0-0.2); BILIRUBIN,TOTAL 0.2 MG/DL (0.2-1.0); BLOOD UREA NITROGEN 14 MG/DL (7-18); C REACTIVE PROTEIN QUANTITATIV 1.39 MG/DL (0.00-0.30); CALCIUM LEVEL 8.9 MG/DL (8.5-10.1); CARBON DIOXIDE LEVEL 31 MEQ/L (21-32); CHLORIDE LEVEL 104 MEQ/L (98-107); CK-MB VALUE MASS < 1.0 NG/ML (<3.6); CPK CREATINE PHOSPHOKINASE 124 U/L (26-192); FREE T4 1.05 NG/DL (0.76-1.46); GLOMERULAR FILTRATION RATE > 60.0 (>58); GLUCOSE, FASTING 101 MG/DL (70-100); MAGNESIUM LEVEL 2.2 MG/DL (1.8-2.4); MB/CK RELATIVE INDEX 0.81 (< OR =4); POTASSIUM SERUM 3.7 MEQ/L (3.5-5.1); SODIUM LEVEL 141 MEQ/L (136-145); TOTAL PROTEIN 7.7 GM/DL (6.4-8.2); TROPONIN I < 0.02 NG/ML (< 0.10)
[2018-08-17] MEDS: METHOCARBAMOL 1,000 MG/10 ML VIAL (J2800) IV (01:30)
[2018-08-17 01:42] LABS: ERYTHROCYTE SEDIMENTATION RATE 40 mm/hr (0-20)
== END 2018-08-17 02:41 | disposition home or self-care (01) ==
LOC: M ED 08-17 02:41
DX: G44.209 Tension-type headache, unspecified, not intractable (principal); I10 Essential (primary) hypertension; J45.909 Unspecified asthma, uncomplicated; K21.9 Gastro-esophageal reflux disease without esophagitis; K57.92 Diverticulitis of intestine, part unspecified, without perforation or abscess without bleeding; F41.9 Anxiety disorder, unspecified; M54.9 Dorsalgia, unspecified; Z79.899 Other long term (current) drug therapy; Z79.51 Long term (current) use of inhaled steroids
CPT/HCPCS: J2405

== ENCOUNTER → 2018-09-07 | Outpatient (REF) | payer OTHER ==
[2018-09-07 17:04] LABS: BASO # 0.1 10^3/uL (0.0-0.2); BASO % 1.3 % (0.0-1.0); EOS # 0.1 10^3/uL (0.0-0.50); EOS % 2.1 % (0.0-3.0); HEMATOCRIT 36.6 % (36.0-47.0); HEMOGLOBIN 11.9 g/dl (12.0-15.5); IMMATURE GRANULOCYTE % 0.3 % (0-3.0); LYMPH # 1.6 10^3/uL (1.5-4.5); LYMPH % 42.9 % (24.0-44.0); MEAN CORPUSCULAR HEMOGLOBIN 26.4 pg (27.0-33.0); MEAN CORPUSCULAR HGB CONC 32.5 g/dl (32.0-36.5); MEAN CORPUSCULAR VOLUME 81.3 fl (80.0-96.0); MONO # 0.3 10^3/uL (0.0-0.8); MONO % 6.6 % (0.0-5.0); NEUTROPHILS # 1.8 10^3/uL (1.8-7.7); NEUTROPHILS % 46.8 % (36.0-66.0); PLATELET COUNT, AUTOMATED 312 10^3/uL (150-450); RED CELL DISTRIBUTION WIDTH 14.9 % (11.5-14.5); WHITE BLOOD COUNT 3.8 10^3/uL (4.0-10.0)
[2018-09-07 17:15] LABS: FERRITIN 134 NG/ML (8-252); IRON (FE) 93 UG/DL (50-170); PERCENT SATURATION 32.1 % (13.2-45.0); THYROID STIMULATING HORMONE 0.618 uIU/ML (0.358-3.740); TOTAL IRON BINDING CAPACITY 290 UG/DL (250-450)
[2018-09-07 17:16] LABS: VITAMIN B12 LEVEL 570 PG/ML
[2018-09-07 18:00] LABS: ERYTHROCYTE SEDIMENTATION RATE 31 mm/hr (0-20)
[2018-09-09 14:35] LABS: ANTI DOUBLE STRAND-DNA AB <1 IU/mL (0-9); ANTI JO-1 ANTIBODIES <0.2 AI (0.0-0.9)
[2018-09-10 00:06] LABS: ANA (HEP2) Negative (.)
[2018-09-10 00:06] LABS: CYCLIC CITRULLINATED PEPTIDE 12 units (0-19)
== END ==
LOC: M SFHCLERA 11:14
DX: D64.9 Anemia, unspecified (principal); R53.83 Other fatigue; G89.4 Chronic pain syndrome
CPT/HCPCS: 82746

== ENCOUNTER → 2018-09-07 | Outpatient (CLI) | payer OTHER | LOC: M LRY 11:44 | DX: M25.762 Osteophyte, left knee (principal); G89.4 Chronic pain syndrome | CPT/HCPCS: 73130 ==

== ENCOUNTER → 2019-06-08 | Outpatient (REF) | payer OTHER ==
[~2019-06-08] MED LIST changes: +ACET1TAB55 PO; +ADV250INH INH; +ALBU17IN INH; +ALBU2TA PO; +ALBUTEROL INHL INH; +AMLO5TAB2 PO; +AMLO5TAB6 PO; +BACL10TA2 PO; +BUSP5TA PO; +CARA1TAB6 PO; +CIPR500T89 PO; +CLIN150C14 PO; +COZA100T2 PO; +FLAG500T PO; +FLON0.054; +FLON1SPR; +FLUT50SP12; +HYDR-3715 PO; +IRON65TA PO; +LOSA100T5 PO; +LOSA50TA20 PO; +LOSA50TA88 PO; +LYRI150C PO; +LYRI75CA PO; +MEDR4PAK PO; +METH1TAB40 PO; -METHACHOLINE KIT (J7674) INH; +MICR10CA PO; +MILK10SU PO; +NAPR-837 PO; +NORCOBULK PO; +NORT50CA PO; +NORV2TAB PO; +OMEP40CA2 PO; +ORPH100T PO; +OXYC1TAB23 PO; +PEPC1TAB5 PO; +PIRO20CA2 PO; +POLY1POW4 PO; +PRED20TA PO; +PREG50CA PO; +RIZA10TA2 PO; +ROBA500T PO; +SOMA350T PO; +TIZA4CAP PO; +TRAM50TA2 PO; +VALI5TAB PO; +VITA50005 PO; +ZYRT10CA PO; +[UNRECOGNIZED DRUG - CODE] PO; +[UNRECOGNIZED DRUG - CODE] PO; +[UNRECOGNIZED DRUG - OTHER]; +buspar PO
[2019-06-08 20:10] LABS: BASO # 0.1 10^3/uL (0.0-0.2); EOS # 0.1 10^3/uL (0.0-0.50); EOS % 2.4 % (0.0-3.0); HEMATOCRIT 36.7 % (36.0-47.0); LYMPH # 2.1 10^3/uL (1.5-4.5); LYMPH % 42.7 % (24.0-44.0); MEAN CORPUSCULAR HEMOGLOBIN 27.1 pg (27.0-33.0); MEAN CORPUSCULAR HGB CONC 32.7 g/dl (32.0-36.5); MEAN CORPUSCULAR VOLUME 82.8 fl (80.0-96.0); MONO # 0.4 10^3/uL (0.0-0.8); MONO % 7.2 % (0.0-5.0); NEUTROPHILS # 2.3 10^3/uL (1.8-7.7); NEUTROPHILS % 46.5 % (36.0-66.0); PLATELET COUNT, AUTOMATED 296 10^3/uL (150-450); RED BLOOD COUNT 4.43 10^6/uL (4.00-5.40)
[2019-06-08 20:24] LABS: ALBUMIN 3.9 GM/DL (3.2-5.2); BILIRUBIN,TOTAL 0.2 MG/DL (0.2-1.0); CALCIUM LEVEL 9.3 MG/DL (8.5-10.1); CHOLESTEROL RISK RATIO 3.96 (<5); CREATININE FOR GFR 1.04 MG/DL (0.55-1.30); GLOMERULAR FILTRATION RATE 59.7 (>51); POTASSIUM SERUM 3.5 MEQ/L (3.5-5.1); THYROID STIMULATING HORMONE 0.619 uIU/ML (0.358-3.740); TOTAL PROTEIN 7.2 GM/DL (6.4-8.2)
[2019-06-08 20:31] LABS: HEMOGLOBIN A1c 6.1 %
== END ==
LOC: M SFHCLERA 16:31
PROVIDERS: ATTEND Family Medicine
DX: I10 Essential (primary) hypertension (principal)

== ENCOUNTER → 2019-09-21 | Outpatient (CLI) | payer OTHER ==
[~2019-09-21] MED LIST changes: +OMEP40CA97 PO
--- NOTE | 2019-09-21 17:04 | REP ---
Two views left hip: 09/21/2019. Indication: Left hip pain. Comparison: 04/08/2016. Findings: There is no acute fracture, subluxation or dislocation. No lytic or blastic lesions are present. No significant osteoarthritic sequelae are present. Impression: No acute osseous left hip injury. Electronically Signed by Andrea Husain DO 09/21/2019 04:55 P
== END ==
LOC: M RAD 16:03
PROVIDERS: ATTEND Family Medicine
DX: M25.512 Pain in left shoulder (principal)

== ENCOUNTER → 2019-09-21 | Outpatient (CLI) | payer OTHER | LOC: M LRY 11:54 | PROVIDERS: ATTEND Family Medicine | DX: Z53.9 Procedure and treatment not carried out, unspecified reason (principal) ==

== ENCOUNTER → 2019-10-13 | Outpatient (CLI) | payer OTHER ==
--- NOTE | 2019-10-13 12:30 | REPMRS ---
Patient History The patient states she had a clinical breast exam in January 2019. Family history of breast cancer at age 80 in mother, ovarian cancer at age 50 or over in maternal aunt. No Hormone Replacement Therapy 3D TOMOSYNTHESIS WAS PERFORMED. [facility] lifetime [facility] for breast cancer is 10.8%. Digital Woman Screen Mammo: October 13, 2019 - Exam #: [id number] Bilateral CC and MLO view(s) were taken. Technologist: Maribel Coyne, Technologist Prior study comparison: July 15, 2018, bilateral digital woman screen mammo performed at [facility]. April 29, 2017, digital mammo diagnostic bilateral, performed at [facility]. FINDINGS: There are scattered fibroglandular densities. There has been no change in the appearance of the mammogram from the prior studies. There is a mild amount of residual fibroglandular tissue which is fairly symmetric. There is no interval development of dominant mass, architectural distortion, or clustered microcalcification suggestive of malignancy. Assessment: BI-RADS/ACR category 1 mammogram. Negative Mammogram. Recommendation Routine screening mammogram in 1 year (for women over age 40). This mammogram was interpreted with the aid of an FDA-approved computer-aided dectection system. Electronically Signed By: Ricardo Mo MD 10/13/19 [id number]
== END ==
LOC: M WHC 11:25
PROVIDERS: ATTEND Family Medicine
DX: Z12.31 Encounter for screening mammogram for malignant neoplasm of breast (principal); Z80.3 Family history of malignant neoplasm of breast

== ENCOUNTER → 2019-11-06 | Outpatient (REF) | payer OTHER ==
[2019-11-06 20:31] LABS: BLOOD UREA NITROGEN 12 MG/DL (7-18); CARBON DIOXIDE LEVEL 28 MEQ/L (21-32); CHLORIDE LEVEL 107 MEQ/L (98-107); CREATININE FOR GFR 0.97 MG/DL (0.55-1.30); GLOMERULAR FILTRATION RATE > 60.0 (>51); GLUCOSE, FASTING 105 MG/DL (70-100); POTASSIUM SERUM 3.7 MEQ/L (3.5-5.1); SODIUM LEVEL 143 MEQ/L (136-145)
[2019-11-06 20:48] LABS: HEMOGLOBIN A1c 5.7 %
== END ==
LOC: M SFHCLERA 16:08
PROVIDERS: ATTEND Family Medicine
DX: I10 Essential (primary) hypertension (principal); R73.03 Prediabetes

== ENCOUNTER 2020-01-10 00:46 | Emergency (ER) | payer OTHER ==
[~2020-01-10] VITALS: Ht 170.2 cm; Wt 111.8 kg
[2020-01-10] MEDS ORDERED: ROBA750T4 PO (00:53)
[2020-01-10] MEDS ORDERED: MORPHINE 4 MG/ML 1ML VIAL/SYRINGE (J2270) IV ONE (01:30)
[2020-01-10] MEDS ORDERED: NS 1,000 ML IV ONE (01:30)
[2020-01-10] MEDS ORDERED: METOCLOPRAMIDE INJ 10MG/2ML VIAL (J2765) IV ONE (01:30)
[2020-01-10 01:35] LABS: BASO % 0.3 % (0.0-1.0); EOS # 0.1 10^3/uL (0.0-0.5); EOS % 0.6 % (0.0-3.0); HEMATOCRIT 37.5 % (36.0-47.0); HEMOGLOBIN 12.1 g/dl (12.0-15.5); LYMPH # 2.2 10^3/uL (1.5-5.0); LYMPH % 23.1 % (24.0-44.0); MEAN CORPUSCULAR HEMOGLOBIN 26.1 pg (27.0-33.0); MEAN CORPUSCULAR HGB CONC 32.3 g/dl (32.0-36.5); MEAN CORPUSCULAR VOLUME 80.8 fl (80.0-96.0); MONO # 0.5 10^3/uL (0.0-0.8); MONO % 4.9 % (0.0-5.0); NEUTROPHILS # 6.9 10^3/uL (1.5-8.5); NEUTROPHILS % 70.8 % (36.0-66.0); PLATELET COUNT, AUTOMATED 305 10^3/uL (150-450); RED BLOOD COUNT 4.64 10^6/uL (4.00-5.40); WHITE BLOOD COUNT 9.7 10^3/uL (4.0-10.0)
[2020-01-10 02:07] LABS: BLOOD UREA NITROGEN 17 MG/DL (7-18); CALCIUM LEVEL 9.2 MG/DL (8.5-10.1); CARBON DIOXIDE LEVEL 31 MEQ/L (21-32); CHLORIDE LEVEL 102 MEQ/L (98-107); CREATININE FOR GFR 0.96 MG/DL (0.55-1.30); GLOMERULAR FILTRATION RATE > 60.0 (>51); GLUCOSE, FASTING 119 MG/DL (70-100); POTASSIUM SERUM 3.3 MEQ/L (3.5-5.1); SODIUM LEVEL 141 MEQ/L (136-145)
[2020-01-10 02:08] LABS: ALT/SGPT 18 U/L (12-78); BILIRUBIN,DIRECT 0.1 MG/DL (0.0-0.2); BILIRUBIN,TOTAL 0.4 MG/DL (0.2-1.0); CK-MB VALUE MASS < 1.0 NG/ML (<3.6); CPK CREATINE PHOSPHOKINASE 197 U/L (26-192); LIPASE 77 U/L (73-393); MB/CK RELATIVE INDEX 0.51 (< OR =4); TOTAL PROTEIN 7.7 GM/DL (6.4-8.2); TROPONIN I < 0.02 NG/ML (< 0.10)
[2020-01-10] MEDS ORDERED: ISOVUE-370 76% 100ML VIAL (Q9967) As Ordered ONE (02:14)
--- NOTE | 2020-01-10 03:23 | REPVR ---
PROCEDURE INFORMATION: Exam: CT Abdomen And Pelvis With Contrast Exam date and time: 01/10/2020 2:10 AM Age: 49 years old Clinical indication: Abdominal pain; Generalized TECHNIQUE: Imaging protocol: Computed tomography of the abdomen and pelvis with intravenous contrast. Radiation optimization: All CT scans at this facility use at least one of these dose optimization techniques: automated exposure control; mA and/or kV adjustment per patient size (includes targeted exams where dose is matched to clinical indication); or iterative reconstruction. Contrast material: ISO; Contrast volume: 100 ml; Contrast route: AC; COMPARISON: CT ABD PELVIS WITH CONTRAST 09/03/2015 10:35 AM FINDINGS: Liver: Normal. No mass. Gallbladder and bile ducts: Normal. No calcified stones. No ductal dilation. Pancreas: Normal. No ductal dilation. Spleen: Normal. No splenomegaly. Adrenals: Normal. No mass. Kidneys and ureters: Normal. No hydronephrosis. Stomach and bowel: Mid and distal small bowel is mildly dilated with intraluminal fluid and mild mucosal enhancement. Terminal ileum is decompressed. No discrete transition point is identified. No pneumatosis. The cecum appears heterogeneous with a thickened medial wall inferior to the ileocecal valve (image 115 of series 201). The remainder of the colon is unremarkable. No colonic obstruction. Appendix: No evidence of appendicitis. Intraperitoneal space: Mild free fluid in the pelvis. No drainable abscess is seen. No pneumoperitoneum. Mild mesenteric edema in the distal small bowel mesentery. Vasculature: Unremarkable. No abdominal aortic aneurysm. Lymph nodes: Unremarkable. No enlarged lymph nodes. Bladder: Unremarkable as visualized. Reproductive: Unremarkable as visualized. Bones/joints: There are degenerative changes in the spine and pelvis. Soft tissues: Unremarkable. IMPRESSION: 1. Mild mucosal enhancement and intraluminal fluid in the distal small bowel is nonspecific but may indicate a viral enteritis. 2. The heterogeneous appearance of the cecum with some wall thickening of uncertain significance. This may be related to intraluminal contents and redundant mucosa. Consider follow-up colonoscopy or barium enema to exclude underlying mucosal lesion. Electronically signed by: Narciso Rodriguez On 01/10/2020 03:22:46 AM
[2020-01-10] MEDS ORDERED: REGL10TA6 PO (04:06)
[2020-01-10 04:10] VITALS: BP 106/62
--- NOTE | 2020-01-10 11:38 | ED PDOC ---
Post-Departure Follow-Up ángel copeland faxed formal report of ct abd/p for fu Danielle Aranda MD Jan 10, 2020 11:38
== END 2020-01-10 04:30 | disposition home or self-care (01) ==
LOC: M ED 00:46
DX: K52.9 Noninfective gastroenteritis and colitis, unspecified (principal); I10 Essential (primary) hypertension; J45.909 Unspecified asthma, uncomplicated; M79.7 Fibromyalgia; K63.89 Other specified diseases of intestine; Z79.51 Long term (current) use of inhaled steroids; Z79.899 Other long term (current) drug therapy
CPT/HCPCS: 74177; 80048; 80076; 82550; 82553; 83690; 85025; 96361; 96374; 96375; 99284; J2270; J2765; Q9967

== ENCOUNTER → 2020-03-14 | Outpatient (CLI) | payer OTHER ==
[~2020-03-14] MED LIST changes: +REGL10TA6 PO; +ROBA750T4 PO
--- NOTE | 2020-03-15 02:05 | REPPI ---
Clinical: Wheezing . Comparison: 10/01/2017 . Technique: PA and lateral. Findings: The mediastinum and cardiac silhouette are normal. The lung anand are clear and without acute consolidation, effusion, or pneumothorax. The skeletal structures are intact and normal. Impression: 1. No acute cardiopulmonary process. Electronically Signed by Gerry Pires MD 03/15/2020 01:57 A
== END ==
LOC: M PLAIMG 11:45
PROVIDERS: ATTEND Family Medicine
DX: R06.02 Shortness of breath (principal)

== ENCOUNTER → 2020-06-18 | Outpatient (CLI) | payer OTHER ==
[~2020-06-18] MED LIST changes: +AMLO1TAB24 PO; -AMLO5TAB6 PO
[2020-08-06 11:04] LABS: BASO % 0.9 % (0.0-1.0); EOS # 0.1 10^3/uL (0.0-0.5); EOS % 1.4 % (0.0-3.0); HEMATOCRIT 36.4 % (36.0-47.0); HEMOGLOBIN 11.8 g/dl (12.0-15.5); LYMPH # 2.1 10^3/uL (1.5-5.0); LYMPH % 48.5 % (24.0-44.0); MEAN CORPUSCULAR HEMOGLOBIN 27.1 pg (27.0-33.0); MEAN CORPUSCULAR HGB CONC 32.4 g/dl (32.0-36.5); MEAN CORPUSCULAR VOLUME 83.7 fl (80.0-96.0); MONO # 0.2 10^3/uL (0.0-0.8); MONO % 5.4 % (0.0-5.0); NEUTROPHILS # 1.9 10^3/uL (1.5-8.5); NEUTROPHILS % 43.6 % (36.0-66.0); PLATELET COUNT, AUTOMATED 276 10^3/uL (150-450); RED BLOOD COUNT 4.35 10^6/uL (4.00-5.40); WHITE BLOOD COUNT 4.3 10^3/uL (4.0-10.0)
[2020-08-28 05:37] LABS: ALBUMIN 3.7 GM/DL (3.2-5.2); ALT/SGPT 21 U/L (12-78); BILIRUBIN,TOTAL 0.4 MG/DL (0.2-1.0); BLOOD UREA NITROGEN 13 MG/DL (7-18); CALCIUM LEVEL 9.1 MG/DL (8.5-10.1); CARBON DIOXIDE LEVEL 33 MEQ/L (21-32); CHLORIDE LEVEL 107 MEQ/L (98-107); CREATININE FOR GFR 0.95 MG/DL (0.55-1.30); FREE T4 0.99 NG/DL (0.76-1.46); GLOMERULAR FILTRATION RATE > 60.0 (>51); GLUCOSE, FASTING 107 MG/DL (70-100); POTASSIUM SERUM 3.3 MEQ/L (3.5-5.1); SODIUM LEVEL 143 MEQ/L (136-145); THYROID STIMULATING HORMONE 0.607 uIU/ML (0.358-3.740); TOTAL PROTEIN 7.3 GM/DL (6.4-8.2)
[2020-08-28 05:38] LABS: C REACTIVE PROTEIN QUANTITATIV 1.22 MG/DL (0.00-0.30)
== END ==
LOC: M LAB 12:34
PROVIDERS: ATTEND Family Medicine
DX: R53.81 Other malaise (principal)

== ENCOUNTER → 2020-07-02 | Outpatient (REF) | payer OTHER ==
[2020-07-02 19:19] LABS: BLOOD UREA NITROGEN 12 MG/DL (7-18); CALCIUM LEVEL 8.8 MG/DL (8.5-10.1); CARBON DIOXIDE LEVEL 29 MEQ/L (21-32); CHLORIDE LEVEL 106 MEQ/L (98-107); CREATININE FOR GFR 0.96 MG/DL (0.55-1.30); FERRITIN 236 NG/ML (8-252); GLOMERULAR FILTRATION RATE > 60.0 (>51); GLUCOSE, FASTING 75 MG/DL (70-100); IRON (FE) 78 UG/DL (50-170); MAGNESIUM LEVEL 2.3 MG/DL (1.8-2.4); PERCENT SATURATION 28.3 % (13.2-45.0); PHOSPHORUS LEVEL 3.4 MG/DL (2.5-4.9); POTASSIUM SERUM 3.8 MEQ/L (3.5-5.1); RHEUMATOID FACTOR QUANT < 10.0 IU/ML (<15.0); SODIUM LEVEL 142 MEQ/L (136-145); TOTAL IRON BINDING CAPACITY 276 UG/DL (250-450)
[2020-07-04 23:07] LABS: ANA (HEP2) Negative (.)
== END ==
LOC: M SFHCLUC 18:39
PROVIDERS: ATTEND Family Medicine
DX: M06.4 Inflammatory polyarthropathy (principal)

== ENCOUNTER → 2020-09-18 | Outpatient (CLI) | payer OTHER ==
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
== END ==
LOC: M PAIN 13:00
PROVIDERS: ATTEND Nurse Practitioner Family
DX: M46.1 Sacroiliitis, not elsewhere classified (principal); J45.909 Unspecified asthma, uncomplicated; I10 Essential (primary) hypertension; K21.9 Gastro-esophageal reflux disease without esophagitis; E04.2 Nontoxic multinodular goiter; Z79.899 Other long term (current) drug therapy

== ENCOUNTER → 2020-11-04 | Outpatient (REF) | payer OTHER ==
[2020-11-04 17:52] LABS: BASO # 0.1 10^3/uL (0.0-0.2); BASO % 1.3 % (0.0-1.0); EOS # 0.1 10^3/uL (0.0-0.5); EOS % 1.7 % (0.0-3.0); HEMATOCRIT 35.9 % (36.0-47.0); HEMOGLOBIN 11.3 g/dl (12.0-15.5); LYMPH # 2.3 10^3/uL (1.5-5.0); LYMPH % 42.6 % (24.0-44.0); MEAN CORPUSCULAR HEMOGLOBIN 25.7 pg (27.0-33.0); MEAN CORPUSCULAR HGB CONC 31.5 g/dl (32.0-36.5); MEAN CORPUSCULAR VOLUME 81.6 fl (80.0-96.0); MONO # 0.4 10^3/uL (0.0-0.8); NEUTROPHILS # 2.5 10^3/uL (1.5-8.5); NEUTROPHILS % 47.4 % (36.0-66.0); PLATELET COUNT, AUTOMATED 308 10^3/uL (150-450); WHITE BLOOD COUNT 5.3 10^3/uL (4.0-10.0)
[2020-11-08 18:07] LABS: D001-IgE D pteronyssinus 4.22 kU/L (Class IV); E001-IgE Cat Epith/Dander 0.65 kU/L (Class II); E005-IgE Dog Dander 0.16 kU/L (Class 0/I); G002-IgE Bermuda Grass < 0.10 kU/L (Class 0); G008-IgE Kentucky Bluegrass 0.82 kU/L (Class II); M001-IgE Penicillium chrysogen < 0.10 kU/L (Class 0); M002 IgE Cladosporium herbaru < 0.10 kU/L (Class 0); M003 IgE Aspergillus fumigatu < 0.10 kU/L (Class 0); M006-IgE Alternaria alternata < 0.10 kU/L (Class 0); T001-IgE Maple/Box Elder < 0.10 kU/L (Class 0); T003-IgE Common Silver Birch 0.14 kU/L (Class 0/I); T006-IgE Cedar, Mountain 0.24 kU/L (Class 0/I); T007-IgE Oak, White 0.11 kU/L (Class 0/I); T008-IgE Elm, American < 0.10 kU/L (Class 0); T015-IgE Ash, White 0.25 kU/L (Class 0/I); T041-IgE Hickory, White 0.25 kU/L (Class 0/I); T070-IgE White Mulberry < 0.10 kU/L (Class 0); W001-IgE Ragweed, Short 0.47 kU/L (Class I); W009-IgE Plantain, English 0.28 kU/L (Class 0/I); W014-IgE Pigweed, Rough < 0.10 kU/L (Class 0); W018-IgE Sheep Sorrel < 0.10 kU/L (Class 0)
== END ==
LOC: M LAB REF 16:54
PROVIDERS: ATTEND Physician Assistant
DX: J45.40 Moderate persistent asthma, uncomplicated (principal)

== ENCOUNTER 2020-11-05 23:00 | Emergency (ER) | payer OTHER ==
[~2020-11-05] VITALS: Ht 170.2 cm; Wt 112.7 kg
[2020-11-05 23:01] VITALS: BP 148/80
[2020-11-05] MEDS ORDERED: BACL10TA2 PO (23:16)
== END 2020-11-06 03:29 | disposition left against medical advice (07) ==
LOC: M ED 23:00
DX: Z53.21 Procedure and treatment not carried out due to patient leaving prior to being seen by health care provider (principal)

== ENCOUNTER → 2020-11-12 | Outpatient (CLI) | payer OTHER ==
[~2020-11-12] MED LIST changes: -CLIN150C14 PO; +CLIN150C15 PO
--- NOTE | 2020-11-12 15:30 | REP ---
INDICATION: RT KNEE SWELLING COMPARISON: None. TECHNIQUE: Five views right knee. FINDINGS: There is no evidence of acute fracture, dislocation, or intrinsic bone disease.There is mild superior patellar spurring. There appears to be a small joint effusion. IMPRESSION: No fracture or dislocation. Mild superior patellar spurring. Small joint effusion. <Electronically signed by Ricardo Mo > 11/12/20 0250
== END ==
LOC: M RAD 14:57
PROVIDERS: ATTEND Physician Assistant Medical
DX: R22.41 Localized swelling, mass and lump, right lower limb (principal)

== ENCOUNTER 2020-12-27 13:00 | Outpatient (RCR) | payer OTHER | END 2020-12-29 | LOC: M PT 13:00 | PROVIDERS: ATTEND Orthopaedic Surgery | DX: S83.241D Other tear of medial meniscus, current injury, right knee, subsequent encounter (principal) ==

== ENCOUNTER → 2021-01-29 | Outpatient (RCR) | payer OTHER | LOC: M PT 01-01 11:52 | PROVIDERS: ATTEND Orthopaedic Surgery | DX: S83.241D Other tear of medial meniscus, current injury, right knee, subsequent encounter (principal) ==

== ENCOUNTER 2021-02-11 15:15 | Outpatient (RCR) | payer OTHER | END 2021-02-28 | LOC: M PT 15:15 | PROVIDERS: ATTEND Orthopaedic Surgery | DX: S83.241D Other tear of medial meniscus, current injury, right knee, subsequent encounter (principal); X58.XXXD Exposure to other specified factors, subsequent encounter ==

== ENCOUNTER → 2021-03-06 | Outpatient (CLI) | payer OTHER ==
[2021-03-06 19:00] LABS: HEMOGLOBIN A1c 5.7 %
--- NOTE | 2021-03-11 07:20 | REP ---
INDICATION: ACANTHOSIS NIGRICANS / LAB FIRST COMPARISON: 01/27/2018 TECHNIQUE: Mo scale and color evaluation of the thyroid gland using the linear high frequency transducer. FINDINGS: The right thyroid lobe measures 4.6 x 2.3 x 1.8 cm and includes 9 x 8 x 9 mm nonspecific hypoechoic midpole nodule, 3 x 3 x 3 mm nonspecific hypoechoic midpole nodule, and 8 x 7 x 8 mm hypoechoic lower pole nodule with parenchymal calcification. The large complex partially cystic upper pole lesion and hypoechoic lower pole nodule on prior examination are no longer present Left lobe measures 4.5 x 2.4 x 1.2 cm and includes 9 x 7 x 6 mm nonspecific hypoechoic upper pole nodule essentially unchanged, and 4 x 2 x 3 mm nonspecific hypoechoic midpole nodule essentially unchanged. Isthmus measures 3.1 mm in width. IMPRESSION: 1. Previously identified complex lesions in the right lobe on examination dated 2017 are no longer present. Three nonspecific hypoechoic right lobe nodules are now identified as noted above which may warrant 9-12 month follow-up. 2. Left lobe lesions appears stable. <Electronically signed by Gerry Pires > 03/11/21 0716
== END ==
LOC: M LAB 16:26
PROVIDERS: ATTEND Family Medicine
DX: E04.1 Nontoxic single thyroid nodule (principal); L83 Acanthosis nigricans

== ENCOUNTER → 2021-03-26 | Outpatient (CLI) | payer OTHER ==
--- NOTE | 2021-03-27 17:11 | ECGEPIP ---
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
== END ==
LOC: M EKG 15:51
PROVIDERS: ATTEND Orthopaedic Surgery
DX: Z01.818 Encounter for other preprocedural examination (principal); I45.19 Other right bundle-branch block

== ENCOUNTER → 2021-04-30 | Outpatient (RCR) | payer OTHER ==
[~2021-04-30] MED LIST changes: +OMEP40CA4 PO; -OMEP40CA97 PO
== END ==
LOC: M PT 04-23 13:36
PROVIDERS: ATTEND Orthopaedic Surgery
DX: M17.11 Unilateral primary osteoarthritis, right knee (principal); S83.281A Other tear of lateral meniscus, current injury, right knee, initial encounter; S83.231A Complex tear of medial meniscus, current injury, right knee, initial encounter; X58.XXXA Exposure to other specified factors, initial encounter; Y92.9 Unspecified place or not applicable

== ENCOUNTER → 2021-05-19 | Outpatient (CLI) | payer OTHER ==
[2021-05-19 16:25] LABS: HEMATOCRIT 35.4 % (36.0-47.0); HEMOGLOBIN 11.3 g/dl (12.0-15.5); MEAN CORPUSCULAR HEMOGLOBIN 26.3 pg (27.0-33.0); MEAN CORPUSCULAR HGB CONC 31.9 g/dl (32.0-36.5); MEAN CORPUSCULAR VOLUME 82.5 fl (80.0-96.0); PLATELET COUNT, AUTOMATED 280 10^3/uL (150-450); RED BLOOD COUNT 4.29 10^6/uL (4.00-5.40); WHITE BLOOD COUNT 4.4 10^3/uL (4.0-10.0)
[2021-05-19 16:45] LABS: C REACTIVE PROTEIN QUANTITATIV 1.87 MG/DL (0.00-0.30); RHEUMATOID FACTOR QUANT < 10.0 IU/ML (<15.0)
[2021-05-19 16:53] LABS: ERYTHROCYTE SEDIMENTATION RATE 35 mm/hr (0-30)
== END ==
LOC: M LAB 15:32
PROVIDERS: ATTEND Orthopaedic Surgery
DX: M17.11 Unilateral primary osteoarthritis, right knee (principal)

== ENCOUNTER 2021-05-27 15:15 | Outpatient (RCR) | payer OTHER ==
[~2021-05-27 15:15] MED LIST changes: -CLIN150C15 PO; +CLIN150C17 PO; +LOSA50TA28 PO; -LOSA50TA88 PO
== END 2021-05-31 ==
LOC: M PT 15:15
PROVIDERS: ATTEND Orthopaedic Surgery
DX: S83.281D Other tear of lateral meniscus, current injury, right knee, subsequent encounter (principal); S83.231D Complex tear of medial meniscus, current injury, right knee, subsequent encounter; M17.11 Unilateral primary osteoarthritis, right knee

== ENCOUNTER → 2021-07-07 | Outpatient (CLI) | payer OTHER ==
[~2021-07-07] MED LIST changes: -LOSA50TA28 PO; +LOSA50TA88 PO
[2021-07-07 15:04] LABS: FOLATE 16.3 NG/ML
== END ==
LOC: M LAB 14:04
PROVIDERS: ATTEND Student in an Organized Health Care Education/Training Program
DX: Z00.00 Encounter for general adult medical examination without abnormal findings (principal); I10 Essential (primary) hypertension; M81.0 Age-related osteoporosis without current pathological fracture

== ENCOUNTER → 2021-07-09 | Outpatient (CLI) | payer OTHER ==
--- NOTE | 2021-07-11 16:44 | DEXAMM ---
INDICATION: M81.0 OSTEOPOROSIS. COMPARISON: 12/28/2012. TECHNIQUE: Bone density was measured using dual-energy x-ray absorptiometry (DEXA). FINDINGS: AP SPINE L1-L4 BMD 1.384 g/cm2 Young Adult T-Score 1.5 Age Matched Z-Score 1.4. LT FEMUR, TOTAL BMD 0.950 g/cm2 Young Adult T-Score -0.5 Age Matched Z-Score -0.9. LT NECK BMD 0.939 g/cm2 Young Adult T-Score -0.7 Age Matched Z-Score -0.7. RT FEMUR, TOTAL BMD 0.911 g/cm2 Young Adult T-Score -0.8 Age Matched Z-Score -1.2. RT NECK BMD 0.857 g/cm2 Young Adult T-Score -1.3 Age Matched Z-Score -1.3. IMPRESSION: There is normal bone density of the spine. There is normal bone density of the left hip. There is low bone density of the right hip. The density of the spine has decreased 0.5% since the initial exam on 12/28/2012. The density of the left hip has decreased 5.5% since initial exam on 12/28/2012. The density of the right hip has decreased 3.8% since the initial exam on 12/28/2012. FOLLOW-UP: Recommendation for the next bone density exam: 2 years. <Electronically signed by Ricardo Mo > 07/11/21 [id number]
== END ==
LOC: M WHC 11:00
PROVIDERS: ATTEND Student in an Organized Health Care Education/Training Program
DX: Z13.820 Encounter for screening for osteoporosis (principal); M81.0 Age-related osteoporosis without current pathological fracture; M85.851 Other specified disorders of bone density and structure, right thigh

== ENCOUNTER → 2021-08-07 | Outpatient (CLI) | payer OTHER | LOC: M PAIN 13:00 | PROVIDERS: ATTEND Anesthesiology | DX: M79.18 Myalgia, other site (principal); J45.909 Unspecified asthma, uncomplicated; G47.33 Obstructive sleep apnea (adult) (pediatric); Z91.09 Other allergy status, other than to drugs and biological substances; Z79.51 Long term (current) use of inhaled steroids; Z79.899 Other long term (current) drug therapy ==

== ENCOUNTER → 2021-09-11 | Outpatient (CLI) | payer OTHER ==
[2021-09-11 16:10] LABS: BASO # 0.1 10^3/uL (0.0-0.2); BASO % 0.9 % (0.0-1.0); EOS # 0.1 10^3/uL (0.0-0.5); EOS % 2.2 % (0.0-3.0); HEMATOCRIT 34.3 % (36.0-47.0); HEMOGLOBIN 11.2 g/dl (12.0-15.5); LYMPH # 2.5 10^3/uL (1.5-5.0); LYMPH % 43.3 % (24.0-44.0); MEAN CORPUSCULAR HEMOGLOBIN 26.6 pg (27.0-33.0); MEAN CORPUSCULAR HGB CONC 32.7 g/dl (32.0-36.5); MEAN CORPUSCULAR VOLUME 81.5 fl (80.0-96.0); MONO # 0.3 10^3/uL (0.0-0.8); MONO % 5.9 % (2.0-8.0); NEUTROPHILS # 2.8 10^3/uL (1.5-8.5); NEUTROPHILS % 47.5 % (36.0-66.0); PLATELET COUNT, AUTOMATED 286 10^3/uL (150-450); RED BLOOD COUNT 4.21 10^6/uL (4.00-5.40); WHITE BLOOD COUNT 5.8 10^3/uL (4.0-10.0)
[2021-09-11 17:12] LABS: BLOOD UREA NITROGEN 14 MG/DL (7-18); CALCIUM LEVEL 9.2 MG/DL (8.5-10.1); CARBON DIOXIDE LEVEL 29 MEQ/L (21-32); CHLORIDE LEVEL 103 MEQ/L (98-107); CREATININE FOR GFR 0.96 MG/DL (0.55-1.30); GLOMERULAR FILTRATION RATE > 60.0 (>51); GLUCOSE, FASTING 91 MG/DL (70-100); IRON (FE) 61 UG/DL (50-170); PERCENT SATURATION 23.9 % (13.2-45.0); POTASSIUM SERUM 3.3 MEQ/L (3.5-5.1); SODIUM LEVEL 140 MEQ/L (136-145); TOTAL IRON BINDING CAPACITY 255 UG/DL (250-450)
== END ==
LOC: M LAB 15:00
PROVIDERS: ATTEND Student in an Organized Health Care Education/Training Program
DX: E61.1 Iron deficiency (principal)

== ENCOUNTER → 2021-11-05 | Outpatient (REF) | LOC: M LABSMTC 13:20 | PROVIDERS: ATTEND Pediatrics | DX: Z11.52 Encounter for screening for COVID-19 (principal) ==

== ENCOUNTER → 2021-12-12 | Outpatient (CLI) | payer OTHER ==
[~2021-12-12] MED LIST changes: +LOSA50TA28 PO; -LOSA50TA88 PO
[2021-12-12 11:34] LABS: BASO # 0.1 10^3/uL (0.0-0.2); BASO % 1.1 % (0.0-1.0); EOS # 0.1 10^3/uL (0.0-0.5); EOS % 1.5 % (0.0-3.0); HEMATOCRIT 37.4 % (36.0-47.0); HEMOGLOBIN 11.9 g/dl (12.0-15.5); LYMPH # 2.5 10^3/uL (1.5-5.0); LYMPH % 46.6 % (24.0-44.0); MEAN CORPUSCULAR HEMOGLOBIN 26.3 pg (27.0-33.0); MEAN CORPUSCULAR HGB CONC 31.8 g/dl (32.0-36.5); MEAN CORPUSCULAR VOLUME 82.7 fl (80.0-96.0); MONO # 0.5 10^3/uL (0.0-0.8); MONO % 8.5 % (2.0-8.0); NEUTROPHILS # 2.2 10^3/uL (1.5-8.5); NEUTROPHILS % 42.1 % (36.0-66.0); PLATELET COUNT, AUTOMATED 332 10^3/uL (150-450); RED BLOOD COUNT 4.52 10^6/uL (4.00-5.40); WHITE BLOOD COUNT 5.3 10^3/uL (4.0-10.0)
[2021-12-12 12:02] LABS: ALBUMIN 3.8 GM/DL (3.2-5.2); ALT/SGPT 21 U/L (12-78); BILIRUBIN,TOTAL 0.3 MG/DL (0.2-1.0); BLOOD UREA NITROGEN 26 MG/DL (7-18); CALCIUM LEVEL 9.3 MG/DL (8.5-10.1); CARBON DIOXIDE LEVEL 29 MEQ/L (21-32); CHLORIDE LEVEL 106 MEQ/L (98-107); CREATININE FOR GFR 0.97 MG/DL (0.55-1.30); GLOMERULAR FILTRATION RATE > 60.0 (>51); GLUCOSE, FASTING 77 MG/DL (70-100); POTASSIUM SERUM 4.2 MEQ/L (3.5-5.1); SODIUM LEVEL 141 MEQ/L (136-145); TOTAL PROTEIN 7.3 GM/DL (6.4-8.2)
== END ==
LOC: M LAB 10:32
PROVIDERS: ATTEND Student in an Organized Health Care Education/Training Program
DX: Z00.00 Encounter for general adult medical examination without abnormal findings (principal)

== ENCOUNTER → 2022-05-20 | Outpatient (CLI) | payer OTHER ==
[~2022-05-20] MED LIST changes: +FERR325T82 PO; +HYDR-3490 PO; +INCR1INH INH; +LORA-674 PO; +LOSA100T45 PO; +POTA1TAB14 PO; +VENTAER INH; +VITA100054 PO
== END ==
LOC: M LABSMTC 11:30
PROVIDERS: ATTEND Anesthesiology
DX: Z01.818 Encounter for other preprocedural examination (principal); Z11.52 Encounter for screening for COVID-19

== ENCOUNTER → 2022-06-04 | Outpatient (CLI) | payer OTHER | LOC: M LABSMTC 10:49 | PROVIDERS: ATTEND Anesthesiology | DX: Z01.818 Encounter for other preprocedural examination (principal); Z11.52 Encounter for screening for COVID-19 ==

== ENCOUNTER 2022-06-08 09:07 | Day surgery (SDC) | payer OTHER ==
[~2022-06-08] VITALS: Ht 170.2 cm; Wt 107.2 kg
[~2022-06-08 09:07] MED LIST changes: +NS 1,000 ML IV ONE
[2022-06-08] MEDS ORDERED: LIDOCAINE 2% 100MG/5ML SDV (FOR ANES.) As Ordered ONE (10:22)
[2022-06-08] MEDS ORDERED: propofoL 200 MG/20 ML VIAL As Ordered ONE (10:22)
[2022-06-08] MEDS ORDERED: GLUCAGON INJ 1MG VIAL As Ordered ONE (10:32)
[2022-06-08 10:55] VITALS: BP 131/87
== END 2022-06-08 11:05 | disposition home or self-care (01) ==
LOC: M OPP 09:07
PROVIDERS: ATTEND Internal Medicine Gastroenterology
DX: Z86.010 Personal history of colon polyps (principal); D12.0 Benign neoplasm of cecum; K64.8 Other hemorrhoids; J45.909 Unspecified asthma, uncomplicated; G47.30 Sleep apnea, unspecified; K21.9 Gastro-esophageal reflux disease without esophagitis; M48.00 Spinal stenosis, site unspecified; Z80.3 Family history of malignant neoplasm of breast; Z80.41 Family history of malignant neoplasm of ovary; Z83.3 Family history of diabetes mellitus; Z82.49 Family history of ischemic heart disease and other diseases of the circulatory system; Z79.51 Long term (current) use of inhaled steroids; Z79.899 Other long term (current) drug therapy
CPT/HCPCS: 45385; 88305; J1610

== ENCOUNTER → 2022-07-09 | Outpatient (CLI) | payer OTHER ==
[~2022-07-09] MED LIST changes: -NS 1,000 ML IV ONE
== END ==
LOC: M WHC 14:09
PROVIDERS: ATTEND Student in an Organized Health Care Education/Training Program
DX: Z12.31 Encounter for screening mammogram for malignant neoplasm of breast (principal)

== ENCOUNTER → 2022-07-17 | Outpatient (CLI) | payer OTHER ==
[2022-07-17 17:41] LABS: BASO % 0.8 % (0.0-1.0); EOS # 0.1 10^3/uL (0.0-0.5); EOS % 2.7 % (0.0-3.0); HEMATOCRIT 34.3 % (36.0-47.0); HEMOGLOBIN 11.1 g/dl (12.0-15.5); LYMPH # 2.5 10^3/uL (1.5-5.0); LYMPH % 51.1 % (24.0-44.0); MEAN CORPUSCULAR HEMOGLOBIN 26.7 pg (27.0-33.0); MEAN CORPUSCULAR HGB CONC 32.4 g/dl (32.0-36.5); MEAN CORPUSCULAR VOLUME 82.7 fl (80.0-96.0); MONO # 0.3 10^3/uL (0.0-0.8); NEUTROPHILS # 1.9 10^3/uL (1.5-8.5); NEUTROPHILS % 39.4 % (36.0-66.0); PLATELET COUNT, AUTOMATED 259 10^3/uL (150-450); RED BLOOD COUNT 4.15 10^6/uL (4.00-5.40); WHITE BLOOD COUNT 4.8 10^3/uL (4.0-10.0)
[2022-07-17 18:24] LABS: ALBUMIN 3.7 GM/DL (3.2-5.2); ALT/SGPT 20 U/L (12-78); BILIRUBIN,TOTAL 0.3 MG/DL (0.2-1.0); BLOOD UREA NITROGEN 18 MG/DL (7-18); CARBON DIOXIDE LEVEL 33 MEQ/L (21-32); CHLORIDE LEVEL 103 MEQ/L (98-107); CHOLESTEROL LEVEL 201 MG/DL (<200); CHOLESTEROL RISK RATIO 3.722 (<5); CREATININE FOR GFR 1.02 MG/DL (0.55-1.30); FREE T4 0.97 NG/DL (0.76-1.46); GLOMERULAR FILTRATION RATE > 60.0 (>51); GLUCOSE, FASTING 87 MG/DL (70-100); HDL CHOLESTEROL 54 MG/DL (>40); LDL CHOLESTEROL 124 MG/DL (<100); NON-HDL-C 147 MG/DL; POTASSIUM SERUM 3.2 MEQ/L (3.5-5.1); SODIUM LEVEL 140 MEQ/L (136-145); THYROID STIMULATING HORMONE 0.593 uIU/ML (0.358-3.740); TOTAL PROTEIN 7.3 GM/DL (6.4-8.2); TRIGLYCERIDES LEVEL 116 MG/DL (<150)
[2022-07-17 18:44] LABS: HEMOGLOBIN A1c 5.8 %
== END ==
LOC: M LAB 16:16
PROVIDERS: ATTEND Student in an Organized Health Care Education/Training Program
DX: E04.1 Nontoxic single thyroid nodule (principal)

== ENCOUNTER → 2022-07-30 | Outpatient (CLI) | payer OTHER | LOC: M RAD 16:09 | PROVIDERS: ATTEND Student in an Organized Health Care Education/Training Program | DX: E04.1 Nontoxic single thyroid nodule (principal); R73.03 Prediabetes ==

== ENCOUNTER 2022-09-28 18:40 | Emergency (ER) | payer OTHER ==
[~2022-09-28] VITALS: Ht 170.2 cm; Wt 107.3 kg
[2022-09-28 18:42] VITALS: BP 132/84
[2022-09-28 20:34] LABS: RSV AMPLIFICATION NEGATIVE (NEGATIVE)
== END 2022-09-29 03:41 | disposition left against medical advice (07) ==
LOC: M ED 18:40
DX: Z53.21 Procedure and treatment not carried out due to patient leaving prior to being seen by health care provider (principal)

== ENCOUNTER 2023-08-17 15:52 | Emergency (ER) | payer OTHER ==
[~2023-08-17] VITALS: Ht 170.2 cm; Wt 106.5 kg
[~2023-08-17 15:52] MED LIST changes: +LORA-1041 PO; -LORA-674 PO; -LOSA100T45 PO; +LOSA100T46 PO; -ORPH100T PO; +ORPH1TAB6 PO; +POTA-298 PO; -POTA1TAB14 PO
[2023-08-17 15:54] VITALS: TEMP 97.1
[2023-08-17] MEDS ORDERED: MORPHINE 4 MG/ML 1ML VIAL IV ONE (19:55)
[2023-08-17 20:42] LABS: BASO # 0.1 10^3/uL (0.0-0.2); BASO % 1.1 % (0.0-1.0); EOS # 0.2 10^3/uL (0.0-0.5); EOS % 2.9 % (0.0-3.0); HEMATOCRIT 35.7 % (36.0-47.0); LYMPH # 2.8 10^3/uL (1.5-5.0); LYMPH % 49.8 % (24.0-44.0); MEAN CORPUSCULAR HEMOGLOBIN 27.1 pg (27.0-33.0); MEAN CORPUSCULAR HGB CONC 33.6 g/dl (32.0-36.5); MEAN CORPUSCULAR VOLUME 80.8 fl (80.0-96.0); MONO # 0.3 10^3/uL (0.0-0.8); MONO % 6.1 % (2.0-8.0); NEUTROPHILS # 2.2 10^3/uL (1.5-8.5); NEUTROPHILS % 39.9 % (36.0-66.0); PLATELET COUNT, AUTOMATED 288 10^3/uL (150-450); RED BLOOD COUNT 4.42 10^6/uL (4.00-5.40); WHITE BLOOD COUNT 5.5 10^3/uL (4.0-10.0)
[2023-08-17] MEDS ORDERED: methylPREDNISolone 125MG 2ML VIAL IV ONE (21:00)
[2023-08-17 21:03] LABS: BLOOD UREA NITROGEN 18 MG/DL (9-23); CALCIUM LEVEL 9.3 MG/DL (8.5-10.1); CARBON DIOXIDE LEVEL 30 MMOL/L (20-31); CHLORIDE LEVEL 105 MMOL/L (98-107); CREATININE FOR GFR 0.92 MG/DL (0.55-1.30); GLOMERULAR FILTRATION RATE > 60.0 (>51); GLUCOSE, FASTING 93 MG/DL (60-100); POTASSIUM SERUM 3.6 MMOL/L (3.5-5.1); SODIUM LEVEL 144 MMOL/L (136-145)
[2023-08-17 21:25] LABS: CK-MB VALUE MASS < 1.0 NG/ML (<3.6)
[2023-08-17 21:26] LABS: CPK CREATINE PHOSPHOKINASE 216 U/L (34-145); MB/CK RELATIVE INDEX 0.46 (< OR =4)
[2023-08-17] MEDS ORDERED: MEDR4PAK PO (22:38)
[2023-08-17 22:47] VITALS: BP 147/86; O2SAT 97
== END 2023-08-17 23:05 | disposition home or self-care (01) ==
LOC: M ED 15:52
DX: S16.1XXA Strain of muscle, fascia and tendon at neck level, initial encounter (principal); I45.10 Unspecified right bundle-branch block; I10 Essential (primary) hypertension; G47.33 Obstructive sleep apnea (adult) (pediatric); J45.909 Unspecified asthma, uncomplicated; Z79.52 Long term (current) use of systemic steroids; Z79.811 Long term (current) use of aromatase inhibitors; Z79.899 Other long term (current) drug therapy
CPT/HCPCS: 72052; 80048; 82550; 82553; 85025; 93005; 96374; 96375; 99284; J2930

== ENCOUNTER → 2023-08-26 | Outpatient (REF) | payer OTHER | LOC: M SFHCLERA 11:59 | PROVIDERS: ATTEND Physician Assistant | DX: R05.1 Acute cough (principal) ==

== ENCOUNTER → 2023-12-25 | Outpatient (CLI) | payer OTHER ==
[2023-12-25 15:23] LABS: BLOOD UREA NITROGEN 17 MG/DL (9-23); CREATININE FOR GFR 0.89 MG/DL (0.55-1.30); GLOMERULAR FILTRATION RATE > 60.0 (>51)
== END ==
LOC: M LAB 13:51
PROVIDERS: ATTEND Psychiatry & Neurology Neurology
DX: I10 Essential (primary) hypertension (principal)

== ENCOUNTER → 2024-01-05 | Outpatient (REF) | payer OTHER | LOC: M SFHCPLAZ 16:58 | PROVIDERS: ATTEND Student in an Organized Health Care Education/Training Program | DX: B34.9 Viral infection, unspecified (principal) ==

== ENCOUNTER → 2024-06-13 | Outpatient (CLI) | payer OTHER ==
[2024-06-13 17:29] LABS: BASO % 0.8 % (0.0-1.0); EOS # 0.2 10^3/uL (0.0-0.5); HEMATOCRIT 34.4 % (36.0-47.0); HEMOGLOBIN 11.3 g/dl (12.0-15.5); LYMPH # 2.5 10^3/uL (1.5-5.0); LYMPH % 50.4 % (24.0-44.0); MEAN CORPUSCULAR HEMOGLOBIN 27.5 pg (27.0-33.0); MEAN CORPUSCULAR HGB CONC 32.8 g/dl (32.0-36.5); MEAN CORPUSCULAR VOLUME 83.7 fl (80.0-96.0); MONO # 0.3 10^3/uL (0.0-0.8); NEUTROPHILS % 39.6 % (36.0-66.0); PLATELET COUNT, AUTOMATED 270 10^3/uL (150-450); RED BLOOD COUNT 4.11 10^6/uL (4.00-5.40)
[2024-06-13 17:33] LABS: ALBUMIN 3.8 G/DL (3.2-5.2); ALKALINE PHOSPHATASE 85 U/L (46-116); ALT/SGPT 17 U/L (7.0-40); AST/SGOT 17 U/L (<34); BILIRUBIN,TOTAL 0.4 MG/DL (0.3-1.2); BLOOD UREA NITROGEN 14 MG/DL (9-23); CALCIUM LEVEL 9.1 MG/DL (8.5-10.1); CARBON DIOXIDE LEVEL 31 MMOL/L (20-31); CHLORIDE LEVEL 106 MMOL/L (98-107); CHOLESTEROL LEVEL 209 MG/DL (<200); CHOLESTEROL RISK RATIO 3.66 (<5); CREATININE FOR GFR 0.91 MG/DL (0.55-1.30); GLOMERULAR FILTRATION RATE > 60.0 (>51); GLUCOSE, FASTING 95 MG/DL (60-100); HDL CHOLESTEROL 57.1 MG/DL (>40); LDL CHOLESTEROL 129.5 MG/DL (<100); NON-HDL-C 151.9 MG/DL; POTASSIUM SERUM 3.5 MMOL/L (3.5-5.1); SODIUM LEVEL 139 MMOL/L (136-145); TRIGLYCERIDES LEVEL 112 MG/DL (<150)
[2024-06-13 17:35] LABS: THYROID STIMULATING HORMONE 0.653 uIU/ML (0.55-4.78); TOTAL 25(OH) VITAMIN D 34.6 NG/ML (20.0-100.0)
[2024-06-13 17:47] LABS: HEMOGLOBIN A1c 5.5 % (4.0-6.0)
== END ==
LOC: M LAB 16:35
PROVIDERS: ATTEND Physician Assistant
DX: R73.03 Prediabetes (principal); I10 Essential (primary) hypertension

== ENCOUNTER → 2024-06-15 | Outpatient (CLI) | payer OTHER | LOC: M PLAIMG 16:08 | PROVIDERS: ATTEND Physician Assistant Medical | DX: M25.551 Pain in right hip (principal) ==

== ENCOUNTER → 2024-07-29 | Outpatient (CLI) | payer OTHER | LOC: M RAD 11:02 | PROVIDERS: ATTEND Orthopaedic Surgery | DX: M16.11 Unilateral primary osteoarthritis, right hip (principal); M25.551 Pain in right hip ==

== ENCOUNTER → 2024-08-11 | Outpatient (CLI) | payer OTHER | LOC: M WHC 10:21 | PROVIDERS: ATTEND Family Medicine | DX: Z12.31 Encounter for screening mammogram for malignant neoplasm of breast (principal) ==

== ENCOUNTER → 2024-08-22 | Outpatient (CLI) | payer OTHER | LOC: M RAD 13:26 | PROVIDERS: ATTEND Family Medicine | DX: E04.1 Nontoxic single thyroid nodule (principal) ==

== ENCOUNTER → 2024-08-24 | Outpatient (CLI) | payer OTHER | LOC: M WHC 11:03 | PROVIDERS: ATTEND Family Medicine | DX: Z12.31 Encounter for screening mammogram for malignant neoplasm of breast (principal); R92.313 Mammographic fatty tissue density, bilateral breasts ==

== ENCOUNTER → 2024-10-19 | Outpatient (REF) | payer OTHER ==
[~2024-10-19] MED LIST changes: +ADVA1AER9 INH
[2024-10-19 18:11] LABS: BLOOD UREA NITROGEN 18 MG/DL (9-23); CALCIUM LEVEL 9.6 MG/DL (8.5-10.1); CARBON DIOXIDE LEVEL 33 MMOL/L (20-31); CHLORIDE LEVEL 102 MMOL/L (98-107); CREATININE FOR GFR 0.85 MG/DL (0.55-1.30); GLOMERULAR FILTRATION RATE > 60.0 (>51); GLUCOSE, FASTING 75 MG/DL (60-100); POTASSIUM SERUM 3.5 MMOL/L (3.5-5.1); SODIUM LEVEL 144 MMOL/L (136-145)
== END ==
LOC: M SFHCLERA 10:44
PROVIDERS: ATTEND Family Medicine
DX: E87.5 Hyperkalemia (principal)

== ENCOUNTER → 2024-11-06 | Outpatient (REF) | payer OTHER | LOC: M SFHCLERA 16:54 | PROVIDERS: ATTEND Family Medicine | DX: R05.9 Cough, unspecified (principal) ==

== ENCOUNTER → 2025-03-06 | Outpatient (CLI) | payer OTHER ==
[~2025-03-06] MED LIST changes: -PREG50CA PO; +PREG50CA87 PO
[2025-03-06 16:28] LABS: BASO # 0.1 10^3/uL (0.0-0.2); BASO % 0.9 % (0.0-1.0); EOS # 0.1 10^3/uL (0.0-0.5); EOS % 2.4 % (0.0-3.0); HEMATOCRIT 35.8 % (36.0-47.0); HEMOGLOBIN 11.8 g/dl (12.0-15.5); LYMPH # 2.1 10^3/uL (1.5-5.0); LYMPH % 37.9 % (24.0-44.0); MEAN CORPUSCULAR HEMOGLOBIN 27.4 pg (27.0-33.0); MEAN CORPUSCULAR VOLUME 83.1 fl (80.0-96.0); MONO # 0.4 10^3/uL (0.0-0.8); MONO % 6.4 % (2.0-8.0); NEUTROPHILS # 2.9 10^3/uL (1.5-8.5); NEUTROPHILS % 52.2 % (36.0-66.0); PLATELET COUNT, AUTOMATED 266 10^3/uL (150-450); RED BLOOD COUNT 4.31 10^6/uL (4.00-5.40); WHITE BLOOD COUNT 5.5 10^3/uL (4.0-10.0)
[2025-03-06 17:03] LABS: CALCIUM LEVEL 8.9 MG/DL (8.5-10.1); CREATININE FOR GFR 0.81 MG/DL (0.55-1.30); GLOMERULAR FILTRATION RATE 85.1 (>51); POTASSIUM SERUM 3.5 MMOL/L (3.5-5.1)
== END ==
LOC: M EKG 15:45
PROVIDERS: ATTEND Family Medicine
DX: R07.9 Chest pain, unspecified (principal); E87.6 Hypokalemia; D64.9 Anemia, unspecified

== ENCOUNTER → 2025-06-22 | Outpatient (CLI) | payer OTHER ==
[~2025-06-22] MED LIST changes: +CHOL25CA2 PO; -VITA100054 PO
== END ==
LOC: M PLAIMG 14:24
PROVIDERS: ATTEND Family Medicine
DX: R07.9 Chest pain, unspecified (principal)

== ENCOUNTER 2025-08-29 13:59 | Outpatient (RCR) | payer OTHER | END 2025-08-31 | LOC: M PT 13:59 | PROVIDERS: ATTEND Family Medicine | DX: M25.551 Pain in right hip (principal) ==